=== PATIENT | female | born 1930 | race Caucasian/White ===

== ENCOUNTER → 2016-09-01 | Outpatient (REF) ==
[~2016-09-01] MED LIST: ADVIL200 MG PO; AMBIEN 5MG TABLE5 MG PO; AMOXICILLIN 50500 MG PO; AMOXICILLIN 8751 TAB PO; ASPIR-LOW81 MG PO; ASPIRIN 32325 MG/TAB PO; ASPIRIN 81M81 MG/TA2 PO; ASPIRIN E.C. 8181 MG PO; BENICAR40 MG PO; BUTALBITAL/ACET1 TAB PO; CIPRO 250MG TA250 MG PO; CIPRO 500MG TA500 MG PO; CORTEF 10MG TAB10 MG PO; CORTEF 20MG TAB20 MG PO; D3-5050000 IU PO; FISH OIL CONCEN1 SGL PO; FLONASE NASAL S16 GM NS; LEVOXYL0.025 MG PO; LIQUIFILM TEARS15 ML OU; LUTEIN20 M1; LUTEIN20 MG PO; MASON NATURAL2000 IU PO; METOPROLOL25 MG PO; MULTI VITAMINS1 TAB PO; MULTIPLE VITAMI1 CTB PO; MVI; NORCO 325 MG-51 TAB PO; NORVASC 5MG5 MG/TAB PO; NORVASC2.5 MG PO; OMEPRAZOLE DR20 MG PO; PRED FORTE 1 ML1 ML; PRED FORTE 1 ML1 ML OD; PRENATAL VITAMI1 TA5 PO; PRILOSEC 20MG20 MG PO; PROMETHAZINE25 M1 PO; PYRIDIUM200 M1 PO; REGLAN 5MG T5 MG/TAB PO; SYNTHROID0.05 MG/TA PO; SYNTHROID0.075 MG/T PO; TAMIFLU75 MG PO; TESSALON PERLE200 MG PO; TOPROL XL 25MG25 MG PO; TOPROL XL25 MG PO; VIT B-6100 MG PO; VITAMIN D1000 IU PO; VITAMIN D32000 I1 PO; VITAMIN FOR EYES; ZANTAC 150MG T150 MG PO; ZITHROMAX 250M250 MG PO; ZOCOR80 MG PO; ZOLOFT50 MG PO; blood pressure med; cholesterol med
== END ==
LOC: ZLAB.WCH 10:46
DX: Z01.89 Encounter for other specified special examinations (principal)

== ENCOUNTER 2016-09-03 07:21 | Emergency (ER) | payer MEDICARE, BC ==
[2009-03-30 04:26] VITALS: BP 188/89
[~2016-09-03] VITALS: Ht 154.9 cm; Wt 61.4 kg
[~2016-09-03 07:21] MED LIST changes: -LIQUIFILM TEARS15 ML OU; -MULTI VITAMINS1 TAB PO; -NORVASC 5MG5 MG/TAB PO; -SYNTHROID0.05 MG/TA PO; -VITAMIN D32000 I1 PO
[2016-09-03 07:28] VITALS: TEMP 97.5
[2016-09-03 08:04] LABS: BASO # 0.1 (0.0-0.2); BASO % 0.7 % (0.0-2.0); EOS # 0.2 (0.0-0.7); EOS % 1.8 % (0-4.0); GRAN # 4.6 (1.4-6.5); GRAN % 46.9 % (42.2-75.2); HEMATOCRIT 40.5 % (37.0-47.0); HEMOGLOBIN 13.4 g/dl (12.5-16.0); LYMPH # 4.3 (1.2-3.4); LYMPH % 43.3 % (20.0-51.0); MEAN CELL VOLUME 86 fl (80.0-100.0); MEAN CORPUSCULAR HEMOGLOBIN 29 pg (27.0-31.0); MEAN CORPUSCULAR HGB CONC 33 g/dl (33.0-37.0); MEAN PLATELET VOLUME 9.1 fl (7.4-10.4); MONO # 0.7 (0.1-0.6); MONO % 6.7 % (1.7-9.3); PLATELET COUNT 232 K/mm3 (130-400); RED BLOOD COUNT 4.71 M/mm3 (4.10-5.30); REDCELL DISTRIBUTION WIDTH-CV 13.6 % (11.5-14.5); WHITE BLOOD COUNT 9.8 K/mm3 (4.8-10.8)
[2016-09-03 08:09] LABS: ADJUSTED CALCIUM 9.4 mg/dL (8.4-10.2); ALANINE AMINOTRANSFERASE 36 U/L (9-52); ALBUMIN 3.7 gm/dL (3.5-5.0); ALKALINE PHOSPHATASE 42 U/L (50-136); ANION GAP 8 mmol/L (7-16); BILIRUBIN,TOTAL 0.6 mg/dL (0.0-1.0); BLOOD UREA NITROGEN 31 mg/dL (7-17); CALCIUM 9.2 mg/dL (8.4-10.2); CARBON DIOXIDE 28 mmol/L (22-30); CHLORIDE 103 mmol/L (98-107); CREATININE, serum 1.36 mg/dL (0.52-1.25); GLUCOSE 80 mg/dL (74-106); LIPASE 285 U/L (23-300); POTASSIUM 3.7 mmol/L (3.4-5.0); SODIUM 139 mmol/L (137-145); TOTAL PROTEIN 6.3 gm/dL (6.4-8.2)
[2016-09-03 08:21] LABS: B-TYPE NATRIURETIC PEPTIDE 419 pg/mL (0-450)
[2016-09-03 08:23] LABS: TROPONIN-I < 0.012 ng/mL (0.000-0.034)
[2016-09-03] MEDS ORDERED: SYNTHROID0.05 MG/TA PO (09:27)
[2016-09-03] MEDS ORDERED: CORTEF 20MG TAB20 MG PO (09:28)
[2016-09-03] MEDS ORDERED: CORTEF 10MG TAB10 MG PO (09:30)
[2016-09-03] MEDS ORDERED: VITAMIN D32000 I1 PO (09:33)
[2016-09-03] MEDS ORDERED: MULTI VITAMINS1 TAB PO (09:34)
[2016-09-03 09:36] LABS: PH 6 (5-8); SQUAMOUS EPITHELIAL 0-2 /hpf; URINE APPEARANCE Clear; URINE BACTERIA None Seen /hpf; URINE BILIRUBIN Negative (NEGATIVE); URINE BLOOD Negative (NEGATIVE); URINE COLOR Straw; URINE GLUCOSE Negative (NEGATIVE); URINE KETONE Negative (NEGATIVE); URINE RBC None Seen /hpf; URINE UROBILINOGEN Negative (NEGATIVE); URINE WBC 0-2 /hpf
[2016-09-03] MEDS ORDERED: LIQUIFILM TEARS15 ML OU (09:37)
[2016-09-03] MEDS ORDERED: NORVASC 5MG5 MG/TAB PO ×2 (12:55→13:14)
[2016-09-03] MEDS ORDERED: PRILOSEC 20MG20 MG PO (12:59)
[2016-09-03 13:11] VITALS: BP 171/89; PULSE 59
== END 2016-09-03 13:20 | disposition home or self-care (01) ==
LOC: COL.ER 07:21
PROVIDERS: Emergency Medicine
DX: R07.9 Chest pain, unspecified (principal); I10 Essential (primary) hypertension; K21.9 Gastro-esophageal reflux disease without esophagitis; E78.5 Hyperlipidemia, unspecified; F32.9 Major depressive disorder, single episode, unspecified; R00.1 Bradycardia, unspecified
CPT/HCPCS: J7040

== ENCOUNTER 2017-04-28 09:51 | Emergency (ER) | payer MEDICARE, BC ==
[2009-03-30 04:26] VITALS: BP 188/89
[~2017-04-28] VITALS: Ht 157.5 cm; Wt 59.1 kg
[~2017-04-28 09:51] MED LIST changes: +LIQUIFILM TEARS15 ML OU; +MULTI VITAMINS1 TAB PO; +NORVASC 5MG5 MG/TAB PO; +SYNTHROID0.05 MG/TA PO; +VITAMIN D32000 I1 PO
[2017-04-28 09:52] VITALS: TEMP 98.4
[2017-04-28 10:25] LABS: BASO % 0.4 % (0.0-2.0); EOS # 0.2 (0.0-0.7); EOS % 2.4 % (0-4.0); GRAN # 6.2 (1.4-6.5); GRAN % 65.4 % (42.2-75.2); HEMATOCRIT 40.2 % (37.0-47.0); HEMOGLOBIN 13.6 g/dl (12.5-16.0); LYMPH # 2.1 (1.2-3.4); LYMPH % 22.3 % (20.0-51.0); MEAN CELL VOLUME 86 fl (80.0-100.0); MEAN CORPUSCULAR HEMOGLOBIN 29 pg (27.0-31.0); MEAN CORPUSCULAR HGB CONC 34 g/dl (33.0-37.0); MEAN PLATELET VOLUME 9.3 fl (7.4-10.4); MONO # 0.8 (0.1-0.6); MONO % 8.8 % (1.7-9.3); PLATELET COUNT 196 K/mm3 (130-400); RED BLOOD COUNT 4.69 M/mm3 (4.10-5.30); REDCELL DISTRIBUTION WIDTH-CV 13.2 % (11.5-14.5)
[2017-04-28 10:30] LABS: INFLUENZA A NEGATIVE; INFLUENZA B NEGATIVE
[2017-04-28 10:37] LABS: ALBUMIN 3.6 gm/dL (3.5-5.0); BILIRUBIN,TOTAL 0.6 mg/dL (0.0-1.0); CALCIUM 8.9 mg/dL (8.4-10.2); CREATININE, serum 1.13 mg/dL (0.52-1.25); POTASSIUM 3.9 mmol/L (3.4-5.0); TOTAL PROTEIN 6.5 gm/dL (6.4-8.2)
[2017-04-28] MEDS ORDERED: TAMIFLU 75MG75 MG PO (11:49)
[2017-04-28 11:56] VITALS: BP 123/62; PULSE 52
== END 2017-04-28 12:06 | disposition home or self-care (01) ==
LOC: COL.ER 09:51
PROVIDERS: Emergency Medicine
DX: I10 Essential (primary) hypertension (principal); J11.1 Influenza due to unidentified influenza virus with other respiratory manifestations; Z90.49 Acquired absence of other specified parts of digestive tract
CPT/HCPCS: J1885; J2405; J7030

== ENCOUNTER 2017-04-30 21:16 | Emergency (ER) | payer MEDICARE, BC ==
[2009-03-30 04:26] VITALS: BP 188/89
[~2017-04-30] VITALS: Ht 157.5 cm; Wt 59.1 kg
[~2017-04-30 21:16] MED LIST changes: +TAMIFLU 75MG75 MG PO
[2017-04-30 22:06] LABS: BASO % 0.3 % (0.0-2.0); EOS # 0.1 (0.0-0.7); EOS % 0.5 % (0-4.0); GRAN # 7.6 (1.4-6.5); GRAN % 69.1 % (42.2-75.2); HEMATOCRIT 42.9 % (37.0-47.0); HEMOGLOBIN 14.6 g/dl (12.5-16.0); LYMPH # 2.7 (1.2-3.4); LYMPH % 24.6 % (20.0-51.0); MEAN CELL VOLUME 85 fl (80.0-100.0); MEAN CORPUSCULAR HEMOGLOBIN 29 pg (27.0-31.0); MEAN CORPUSCULAR HGB CONC 34 g/dl (33.0-37.0); MEAN PLATELET VOLUME 9.1 fl (7.4-10.4); MONO # 0.5 (0.1-0.6); MONO % 4.9 % (1.7-9.3); PLATELET COUNT 240 K/mm3 (130-400); RED BLOOD COUNT 5.05 M/mm3 (4.10-5.30); REDCELL DISTRIBUTION WIDTH-CV 12.9 % (11.5-14.5)
[2017-04-30 22:16] LABS: ALANINE AMINOTRANSFERASE 34 U/L (9-52); ALKALINE PHOSPHATASE 61 U/L (50-136); ANION GAP 9 mmol/L (7-16); AST,SGOT 29 U/L (15-37); BILIRUBIN,TOTAL 0.4 mg/dL (0.0-1.0); BLOOD UREA NITROGEN 19 mg/dL (7-17); CALCIUM 9.1 mg/dL (8.4-10.2); CARBON DIOXIDE 26 mmol/L (22-30); CHLORIDE 100 mmol/L (98-107); CREATININE, serum 1.16 mg/dL (0.52-1.25); GLUCOSE 111 mg/dL (74-106); POTASSIUM 3.8 mmol/L (3.4-5.0); SODIUM 136 mmol/L (137-145)
[2017-04-30 22:28] LABS: TROPONIN-I < 0.012 ng/mL (0.000-0.034)
[2017-04-30 22:44] LABS: COLLECTION METHOD CLEAN CATCH
[2017-04-30 22:50] LABS: MUCOUS Present /lpf; PH 7 (5-8); SQUAMOUS EPITHELIAL 0-2 /hpf; URINE APPEARANCE Hazy; URINE BACTERIA None Seen /hpf; URINE BILIRUBIN Negative (NEGATIVE); URINE BLOOD Negative (NEGATIVE); URINE COLOR Yellow; URINE GLUCOSE Negative (NEGATIVE); URINE KETONE Trace (NEGATIVE); URINE LEUKOCYTE ESTERASE Negative (NEGATIVE); URINE NITRATE Negative (NEGATIVE); URINE PROTEIN(semi-quant) Negative (NEGATIVE); URINE RBC 0-2 /hpf
[2017-04-30] MEDS ORDERED: AMBIEN 5MG TABLE5 MG PO (23:12)
[2017-05-01 01:42] VITALS: BP 189/81; PULSE 61; TEMP 97.2
== END 2017-05-01 01:40 | disposition home or self-care (01) ==
LOC: COL.ER 21:16
PROVIDERS: Emergency Medicine
DX: J11.1 Influenza due to unidentified influenza virus with other respiratory manifestations (principal); R53.1 Weakness; I10 Essential (primary) hypertension
CPT/HCPCS: J1885; J2405; J7030

== ENCOUNTER → 2017-05-09 | Outpatient (REF) ==
[2017-05-09 20:19] LABS: THYROID STIMULATING HORMONE 0.781 uIU/mL (0.465-4.680)
== END ==
LOC: ZLAB.WCH 18:31
PROVIDERS: Nurse Practitioner Family
DX: Z01.89 Encounter for other specified special examinations (principal)

== ENCOUNTER → 2017-08-03 | Outpatient (REF) | LOC: ZLAB.WCH 16:14 | DX: Z01.89 Encounter for other specified special examinations (principal) ==

== ENCOUNTER → 2017-08-28 | Outpatient (REF) | LOC: ZLAB.WCH 16:00 | DX: Z01.89 Encounter for other specified special examinations (principal) ==

== ENCOUNTER → 2017-11-14 | Outpatient (REF) ==
[2017-11-14 17:05] LABS: THYROID STIMULATING HORMONE 1.46 uIU/mL (0.465-4.680)
== END ==
LOC: ZLAB.WCH 16:09
PROVIDERS: Internal Medicine Endocrinology, Diabetes & Metabolism
DX: Z01.89 Encounter for other specified special examinations (principal)

== ENCOUNTER 2018-01-06 20:47 | Inpatient (IN) | payer MEDICARE, BC ==
[~2018-01-06] VITALS: Ht 157.5 cm; Wt 59.0 kg
[2018-01-06 21:20] LABS: BASO % 0.2 % (0.0-2.0); EOS % 0.1 % (0-4.0); GRAN # 11.8 (1.4-6.5); GRAN % 79.6 % (42.2-75.2); HEMATOCRIT 38.3 % (37.0-47.0); HEMOGLOBIN 12.9 g/dl (12.5-16.0); LYMPH # 2.2 (1.2-3.4); LYMPH % 14.6 % (20.0-51.0); MEAN CELL VOLUME 85 fl (80.0-100.0); MEAN CORPUSCULAR HEMOGLOBIN 29 pg (27.0-31.0); MEAN CORPUSCULAR HGB CONC 34 g/dl (33.0-37.0); MONO # 0.7 (0.1-0.6); MONO % 4.6 % (1.7-9.3); PLATELET COUNT 233 K/mm3 (130-400); RED BLOOD COUNT 4.53 M/mm3 (4.10-5.30); REDCELL DISTRIBUTION WIDTH-CV 14.6 % (11.5-14.5)
[2018-01-06 21:33] LABS: BILIRUBIN,TOTAL 0.3 mg/dL (0.0-1.0); C-REACTIVE PROTEIN 3.5 mg/dL (0.0-0.9); CALCIUM 9.4 mg/dL (8.4-10.2); CREATININE, serum 1.41 mg/dL (0.52-1.25); POTASSIUM 3.9 mmol/L (3.4-5.0)
[2018-01-06] MEDS ORDERED: MELAT3MGTAB (21:43)
[2018-01-06] MEDS ORDERED: SYNTHROID 0.0.025 MG PO (21:43)
[2018-01-06] MEDS ORDERED: CALCIUM CARBON650 M2 (21:45)
[2018-01-06] MEDS ORDERED: AK POLY BAC OP (21:46)
[2018-01-06 22:28] LABS: COLLECTION METHOD CLEAN CATCH
[2018-01-06 22:34] LABS: MUCOUS Present /lpf; PH 6 (5-8); SQUAMOUS EPITHELIAL 0-2 /hpf; URINE APPEARANCE Clear; URINE BACTERIA None Seen /hpf; URINE BILIRUBIN Negative (NEGATIVE); URINE BLOOD Negative (NEGATIVE); URINE COLOR Straw; URINE GLUCOSE Negative (NEGATIVE); URINE KETONE Negative (NEGATIVE); URINE LEUKOCYTE ESTERASE Negative (NEGATIVE); URINE NITRATE Negative (NEGATIVE); URINE PROTEIN(semi-quant) Negative (NEGATIVE); URINE RBC 0-2 /hpf; URINE UROBILINOGEN Negative (NEGATIVE)
[2018-01-07 00:42] VITALS: BP 153/63; PULSE 79; TEMP 98.3
[2018-01-07 03:45] VITALS: BP 135/67; PULSE 71; TEMP 97.4
[2018-01-07 07:05] VITALS: BP 135/71; PULSE 63; TEMP 98
[2018-01-07 07:09] LABS: CALCIUM 8.5 mg/dL (8.4-10.2); CREATININE, serum 1.13 mg/dL (0.52-1.25); POTASSIUM 3.4 mmol/L (3.4-5.0)
[2018-01-07 12:29] VITALS: BP 152/63; PULSE 70; TEMP 98.5
[2018-01-07 15:36] VITALS: BP 131/57; PULSE 65; TEMP 98
[2018-01-07 20:28] VITALS: BP 124/78; PULSE 70; TEMP 97.9
[2018-01-08] MEDS ORDERED: CIPRO 500MG TA500 MG PO (08:52)
[2018-01-08] MEDS ORDERED: FLAGYL500 MG PO (08:52)
[2018-01-08 09:22] VITALS: BP 137/73; PULSE 52; TEMP 98.1
[2018-01-08 09:29] LABS: BASO # 0.1 (0.0-0.2); BASO % 0.7 % (0.0-2.0); EOS # 0.1 (0.0-0.7); EOS % 1.4 % (0-4.0); GRAN # 5.8 (1.4-6.5); GRAN % 59.3 % (42.2-75.2); HEMATOCRIT 37.7 % (37.0-47.0); HEMOGLOBIN 12.2 g/dl (12.5-16.0); LYMPH # 2.8 (1.2-3.4); MEAN CELL VOLUME 87 fl (80.0-100.0); MEAN CORPUSCULAR HEMOGLOBIN 28 pg (27.0-31.0); MEAN CORPUSCULAR HGB CONC 32 g/dl (33.0-37.0); MEAN PLATELET VOLUME 9.3 fl (7.4-10.4); MONO # 0.8 (0.1-0.6); MONO % 8.6 % (1.7-9.3); PLATELET COUNT 215 K/mm3 (130-400); RED BLOOD COUNT 4.33 M/mm3 (4.10-5.30); REDCELL DISTRIBUTION WIDTH-CV 14.5 % (11.5-14.5)
[2018-01-08 09:32] LABS: CREATININE, serum 1.2 mg/dL (0.52-1.25); POTASSIUM 3.8 mmol/L (3.4-5.0)
[2018-01-08 12:15] VITALS: BP 126/74; PULSE 107; TEMP 98.7
[2018-01-08 16:20] VITALS: BP 125/58; PULSE 72; TEMP 98.5
[2018-01-08 19:19] VITALS: BP 120/51; PULSE 73; TEMP 98.7
[2018-01-09 07:41] VITALS: BP 140/56; PULSE 58; TEMP 97.9
== END 2018-01-09 10:41 | disposition home or self-care (01) | DRG 392 ==
LOC: COL.ER 20:47 → MEDICAL 22:51
PROVIDERS: Emergency Medicine; Nurse Practitioner; Nurse Practitioner Family
DX: K57.32 Diverticulitis of large intestine without perforation or abscess without bleeding (principal); N17.9 Acute kidney failure, unspecified; E23.0 Hypopituitarism; K52.9 Noninfective gastroenteritis and colitis, unspecified; I10 Essential (primary) hypertension
CPT/HCPCS: 99223-AI; 99232-AI; G0378; J0696; J7030

== ENCOUNTER 2018-01-13 14:57 | Emergency (ER) | payer MEDICARE, BC ==
[2009-03-30 04:26] VITALS: BP 188/89
[~2018-01-13] VITALS: Ht 157.5 cm; Wt 57.7 kg
[~2018-01-13 14:57] MED LIST changes: +AK POLY BAC OP; +CALCIUM CARBON650 M2; +FLAGYL500 MG PO; +MELAT3MGTAB; +SYNTHROID 0.0.025 MG PO
[2018-01-13 15:01] VITALS: TEMP 99.6
[2018-01-13 15:51] LABS: BASO # 0.1 (0.0-0.2); BASO % 0.6 % (0.0-2.0); EOS # 0.1 (0.0-0.7); EOS % 1.4 % (0-4.0); GRAN # 7.9 (1.4-6.5); GRAN % 76.5 % (42.2-75.2); HEMATOCRIT 37.8 % (37.0-47.0); HEMOGLOBIN 12.6 g/dl (12.5-16.0); LYMPH # 1.5 (1.2-3.4); MEAN CELL VOLUME 85 fl (80.0-100.0); MEAN CORPUSCULAR HEMOGLOBIN 28 pg (27.0-31.0); MEAN CORPUSCULAR HGB CONC 33 g/dl (33.0-37.0); MEAN PLATELET VOLUME 8.8 fl (7.4-10.4); MONO # 0.6 (0.1-0.6); MONO % 5.7 % (1.7-9.3); PLATELET COUNT 227 K/mm3 (130-400); RED BLOOD COUNT 4.46 M/mm3 (4.10-5.30); REDCELL DISTRIBUTION WIDTH-CV 14.6 % (11.5-14.5)
[2018-01-13 16:01] LABS: CALCIUM 8.4 mg/dL (8.4-10.2); CREATININE, serum 1.23 mg/dL (0.52-1.25); POTASSIUM 3.1 mmol/L (3.4-5.0)
[2018-01-13] MEDS ORDERED: K-TAB10 PO (16:03)
[2018-01-13 16:28] VITALS: BP 141/78; PULSE 71
== END 2018-01-13 16:28 | disposition home or self-care (01) ==
LOC: COL.ER 14:57
PROVIDERS: Emergency Medicine
DX: E87.6 Hypokalemia (principal); K57.92 Diverticulitis of intestine, part unspecified, without perforation or abscess without bleeding; R53.81 Other malaise

== ENCOUNTER → 2018-01-16 | Outpatient (CLI) | payer MEDICARE, BC ==
[~2018-01-16] MED LIST changes: +K-TAB10 PO
== END ==
LOC: COL.LAB 11:19
DX: E87.6 Hypokalemia (principal)

== ENCOUNTER 2018-03-14 11:28 | Emergency (ER) | payer MEDICARE, BC ==
[2009-03-30 04:26] VITALS: BP 188/89
[~2018-03-14] VITALS: Ht 157.5 cm; Wt 56.8 kg
[2018-03-14 11:32] VITALS: TEMP 96.9
[2018-03-14] MEDS ORDERED: MILK OF MA400 MG/52 (11:51)
[2018-03-14] MEDS ORDERED: SYNTHROID 0.0.025 MG PO (12:00)
[2018-03-14] MEDS ORDERED: TYLENOL 500MG500 MG PO (12:01)
[2018-03-14 13:18] LABS: BASO # 0.1 (0.0-0.2); BASO % 0.5 % (0.0-2.0); EOS # 0.3 (0.0-0.7); EOS % 2.2 % (0-4.0); GRAN # 8.2 (1.4-6.5); GRAN % 71.4 % (42.2-75.2); HEMATOCRIT 42.8 % (37.0-47.0); HEMOGLOBIN 14.2 g/dl (12.5-16.0); LYMPH # 2.1 (1.2-3.4); LYMPH % 18.5 % (20.0-51.0); MEAN CELL VOLUME 88 fl (80.0-100.0); MEAN CORPUSCULAR HEMOGLOBIN 29 pg (27.0-31.0); MEAN CORPUSCULAR HGB CONC 33 g/dl (33.0-37.0); MEAN PLATELET VOLUME 8.8 fl (7.4-10.4); MONO # 0.7 (0.1-0.6); MONO % 6.4 % (1.7-9.3); PLATELET COUNT 216 K/mm3 (130-400); RED BLOOD COUNT 4.88 M/mm3 (4.10-5.30); REDCELL DISTRIBUTION WIDTH-CV 14.3 % (11.5-14.5)
[2018-03-14 13:37] LABS: ALBUMIN 4.1 gm/dL (3.5-5.0); BILIRUBIN,TOTAL 0.5 mg/dL (0.0-1.0); C-REACTIVE PROTEIN 0.6 mg/dL (0.0-0.9); CALCIUM 9.5 mg/dL (8.4-10.2); CREATININE, serum 1.36 mg/dL (0.52-1.25); POTASSIUM 3.7 mmol/L (3.4-5.0)
[2018-03-14 15:41] LABS: COLLECTION METHOD CLEAN CATCH
[2018-03-14 16:01] VITALS: BP 131/74; PULSE 84
[2018-03-14 16:05] LABS: AMORPHOUS CRYSTAL Present /uL; MUCOUS Present /lpf; PH 7 (5-8); SQUAMOUS EPITHELIAL 0-2 /hpf; URINE APPEARANCE Turbid; URINE BACTERIA None Seen /hpf; URINE BILIRUBIN Negative (NEGATIVE); URINE BLOOD Negative (NEGATIVE); URINE COLOR Yellow; URINE GLUCOSE Negative (NEGATIVE); URINE KETONE Negative (NEGATIVE); URINE LEUKOCYTE ESTERASE Negative (NEGATIVE); URINE NITRATE Negative (NEGATIVE); URINE PROTEIN(semi-quant) Negative (NEGATIVE); URINE UROBILINOGEN Negative (NEGATIVE)
== END 2018-03-14 16:02 | disposition home or self-care (01) ==
LOC: COL.ER 11:28
PROVIDERS: Emergency Medicine
DX: R10.84 Generalized abdominal pain (principal)

== ENCOUNTER 2018-04-02 11:23 | Inpatient (IN) | payer MEDICARE, BC ==
[~2018-04-02] VITALS: Ht 157.5 cm; Wt 59.9 kg
[2018-04-02] VITALS (15 sets, daily range): BP systolic 111–169; BP diastolic 62–95; PULSE 75–90; TEMP 97.2–98.3
[~2018-04-02 11:23] MED LIST changes: -MELAT3MGTAB; +MELAT3MGTAB PO; +MILK OF MA400 MG/52; +TYLENOL 500MG500 MG PO
[2018-04-02 11:41] LABS: BASO # 0.1 (0.0-0.2); BASO % 0.6 % (0.0-2.0); EOS # 0.3 (0.0-0.7); EOS % 1.6 % (0-4.0); GRAN # 10.6 (1.4-6.5); GRAN % 64.2 % (42.2-75.2); LYMPH # 4.5 (1.2-3.4); MEAN CELL VOLUME 89 fl (80.0-100.0); MEAN CORPUSCULAR HEMOGLOBIN 29 pg (27.0-31.0); MEAN CORPUSCULAR HGB CONC 33 g/dl (33.0-37.0); MEAN PLATELET VOLUME 9.2 fl (7.4-10.4); MONO % 5.8 % (1.7-9.3); PLATELET COUNT 259 K/mm3 (130-400); RED BLOOD COUNT 4.14 M/mm3 (4.10-5.30); REDCELL DISTRIBUTION WIDTH-CV 13.9 % (11.5-14.5)
[2018-04-02 11:43] LABS: PROTHROMBIN TIME 11.1 SECONDS (9.7-12.8)
[2018-04-02 11:44] LABS: HEMATOCRIT 36.7 % (37.0-47.0)
[2018-04-02 11:53] LABS: ALBUMIN 3.2 gm/dL (3.5-5.0); BILIRUBIN,TOTAL 0.4 mg/dL (0.0-1.0); CALCIUM 8.8 mg/dL (8.4-10.2); CREATININE, serum 1.49 mg/dL (0.52-1.25); POTASSIUM 3.9 mmol/L (3.4-5.0); TOTAL PROTEIN 5.8 gm/dL (6.4-8.2)
[2018-04-02 12:09] LABS: TROPONIN-I 0.042 ng/mL (0.000-0.034)
[2018-04-02] MEDS ORDERED: MULTIVITAMIN FO1 CAP PO (15:59)
[2018-04-03] VITALS (18 sets, daily range): BP systolic 96–168; BP diastolic 41–84; PULSE 68–97; TEMP 97.4–98.4
[2018-04-03 03:46] LABS: COLLECTION METHOD CATHETER
[2018-04-03 03:59] LABS: MUCOUS Present /lpf; PH 5 (5-8); SQUAMOUS EPITHELIAL 0-2 /hpf; URINE APPEARANCE Clear; URINE BACTERIA Rare /hpf; URINE BILIRUBIN Negative (NEGATIVE); URINE BLOOD 2+ (NEGATIVE); URINE COLOR Yellow; URINE GLUCOSE Negative (NEGATIVE); URINE KETONE Negative (NEGATIVE); URINE LEUKOCYTE ESTERASE Negative (NEGATIVE); URINE NITRATE Negative (NEGATIVE); URINE PROTEIN(semi-quant) 1+ (NEGATIVE); URINE UROBILINOGEN Negative (NEGATIVE)
[2018-04-03 04:07] LABS: GRAN # 8.4 (1.4-6.5); GRAN % 83.2 % (42.2-75.2); HEMATOCRIT 32.4 % (37.0-47.0); HEMOGLOBIN 10.6 g/dl (12.5-16.0); LYMPH # 1.2 (1.2-3.4); LYMPH % 12.2 % (20.0-51.0); MEAN CELL VOLUME 88 fl (80.0-100.0); MEAN CORPUSCULAR HEMOGLOBIN 29 pg (27.0-31.0); MEAN CORPUSCULAR HGB CONC 33 g/dl (33.0-37.0); MEAN PLATELET VOLUME 9.3 fl (7.4-10.4); MONO # 0.4 (0.1-0.6); MONO % 3.8 % (1.7-9.3); PLATELET COUNT 204 K/mm3 (130-400); RED BLOOD COUNT 3.68 M/mm3 (4.10-5.30)
[2018-04-03 04:25] LABS: CALCIUM 8.4 mg/dL (8.4-10.2); CHOLESTEROL RISK RATIO 2.9; CREATININE, serum 1.26 mg/dL (0.52-1.25); POTASSIUM 4.4 mmol/L (3.4-5.0)
[2018-04-03 04:59] LABS: TSH w REFLEX 0.408 uIU/mL (0.465-4.680)
[2018-04-04] VITALS: BP 125/55; PULSE 60; TEMP 98.3
[2018-04-04 04:00] VITALS: BP 135/64; PULSE 64; TEMP 98.1
[2018-04-04 05:54] LABS: CALCIUM 8.7 mg/dL (8.4-10.2); CREATININE, serum 1.21 mg/dL (0.52-1.25); POTASSIUM 4.1 mmol/L (3.4-5.0)
[2018-04-04 07:30] LABS: BASO % 0.3 % (0.0-2.0); EOS # 0.1 (0.0-0.7); EOS % 0.6 % (0-4.0); GRAN # 10.7 (1.4-6.5); GRAN % 69.5 % (42.2-75.2); HEMATOCRIT 32.5 % (37.0-47.0); HEMOGLOBIN 10.9 g/dl (12.5-16.0); LYMPH # 3.3 (1.2-3.4); LYMPH % 21.4 % (20.0-51.0); MEAN CELL VOLUME 86 fl (80.0-100.0); MEAN CORPUSCULAR HEMOGLOBIN 29 pg (27.0-31.0); MEAN CORPUSCULAR HGB CONC 34 g/dl (33.0-37.0); MEAN PLATELET VOLUME 9.5 fl (7.4-10.4); MONO # 1.1 (0.1-0.6); MONO % 7.4 % (1.7-9.3); PLATELET COUNT 212 K/mm3 (130-400); RED BLOOD COUNT 3.76 M/mm3 (4.10-5.30)
[2018-04-04 08:00] VITALS: BP 134/61; PULSE 65; TEMP 98
[2018-04-04 12:00] VITALS: BP 116/5; BP 116/56; PULSE 74; PULSE 96; TEMP 97.5
[2018-04-04 16:00] VITALS: BP 139/60; PULSE 73; PULSE 74; TEMP 97.3; TEMP 97.5
[2018-04-04 20:00] VITALS: BP 151/68; PULSE 75; TEMP 98.1
[2018-04-05 00:15] VITALS: BP 165/64; PULSE 67; TEMP 98.3
[2018-04-05 04:00] VITALS: BP 151/65; PULSE 66; TEMP 98.3
[2018-04-05 05:36] LABS: BASO # 0.1 (0.0-0.2); BASO % 0.4 % (0.0-2.0); EOS # 0.2 (0.0-0.7); EOS % 1.6 % (0-4.0); GRAN # 7.9 (1.4-6.5); GRAN % 64.6 % (42.2-75.2); HEMOGLOBIN 10.5 g/dl (12.5-16.0); LYMPH # 3.1 (1.2-3.4); LYMPH % 25.2 % (20.0-51.0); MEAN CELL VOLUME 88 fl (80.0-100.0); MEAN CORPUSCULAR HEMOGLOBIN 29 pg (27.0-31.0); MEAN CORPUSCULAR HGB CONC 33 g/dl (33.0-37.0); MEAN PLATELET VOLUME 9.5 fl (7.4-10.4); MONO # 0.9 (0.1-0.6); MONO % 7.5 % (1.7-9.3); PLATELET COUNT 176 K/mm3 (130-400); RED BLOOD COUNT 3.62 M/mm3 (4.10-5.30); REDCELL DISTRIBUTION WIDTH-CV 13.8 % (11.5-14.5)
[2018-04-05 05:37] LABS: HEMATOCRIT 31.7 % (37.0-47.0)
[2018-04-05 05:57] LABS: CALCIUM 8.7 mg/dL (8.4-10.2); CREATININE, serum 1.11 mg/dL (0.52-1.25)
[2018-04-05] MEDS ORDERED: PLAVIX 75MG TAB75 MG PO (07:08)
[2018-04-05] MEDS ORDERED: LIPITOR 40MG TA40 MG PO (07:08)
[2018-04-05] MEDS ORDERED: NITROSTAT0.4 MG/TAB SL (07:09)
[2018-04-05] MEDS ORDERED: COREG 3.123.125 MG/T PO (07:09)
[2018-04-05] MEDS ORDERED: ASPIRIN E.C. 8181 MG PO (07:09)
[2018-04-05] MEDS ORDERED: SENNA-LAX8.6 MG PO (07:12)
[2018-04-05 07:26] VITALS: BP 151/54; PULSE 65; TEMP 98.1
[2018-04-05] MEDS ORDERED: COREG 6.256.25 MG/TA PO ×2 (08:19)
== END 2018-04-05 12:00 | disposition home or self-care (01) | DRG 246 ==
LOC: COL.ER 11:23 → ICU 12:01 → IMCU 12:01 → ICU 14:30 → MEDICAL 04-04 22:22
PROVIDERS: Emergency Medicine; Internal Medicine Cardiovascular Disease; Internal Medicine Pulmonary Disease; Physician Assistant
PROC: 027034Z Dilation of Coronary Artery, One Artery with Drug-eluting Intraluminal Device, Percutaneous Approach (ICD-10-PCS; principal; 2018-04-02)
PROC: B2111ZZ Fluoroscopy of Multiple Coronary Arteries using Low Osmolar Contrast (ICD-10-PCS; 2018-04-02)
PROC: 3E03317 Introduction of Other Thrombolytic into Peripheral Vein, Percutaneous Approach (ICD-10-PCS; 2018-04-02)
DX: I21.19 ST elevation (STEMI) myocardial infarction involving other coronary artery of inferior wall (principal); R57.0 Cardiogenic shock; E23.0 Hypopituitarism; N17.9 Acute kidney failure, unspecified; I12.9 Hypertensive chronic kidney disease with stage 1 through stage 4 chronic kidney disease, or unspecified chronic kidney disease; N18.9 Chronic kidney disease, unspecified; I25.10 Atherosclerotic heart disease of native coronary artery without angina pectoris; E78.5 Hyperlipidemia, unspecified; D64.9 Anemia, unspecified; H11.32 Conjunctival hemorrhage, left eye; I08.3 Combined rheumatic disorders of mitral, aortic and tricuspid valves
CPT/HCPCS: 99223; 99231-AI; 99232-AI; C1725; C1769; C1874; C1887; C1894; C9600; J1200; J1265; J1644; J1720; J2405; J2930; J3101; J7030; Q9967

== ENCOUNTER 2018-04-13 10:57 | Emergency (ER) | payer MEDICARE, BC ==
[2009-03-30 04:26] VITALS: BP 188/89
[~2018-04-13] VITALS: Ht 157.5 cm; Wt 56.8 kg
[~2018-04-13 10:57] MED LIST changes: +COREG 3.123.125 MG/T PO; +COREG 6.256.25 MG/TA PO; +LIPITOR 40MG TA40 MG PO; +MULTIVITAMIN FO1 CAP PO; +NITROSTAT0.4 MG/TAB SL; +PLAVIX 75MG TAB75 MG PO; +SENNA-LAX8.6 MG PO
[2018-04-13 10:59] VITALS: TEMP 97
[2018-04-13 11:55] LABS: HEMOGLOBIN 11.3 g/dl (12.5-16.0); MEAN CELL VOLUME 89 fl (80.0-100.0); MEAN CORPUSCULAR HEMOGLOBIN 29 pg (27.0-31.0); MEAN CORPUSCULAR HGB CONC 33 g/dl (33.0-37.0); MEAN PLATELET VOLUME 9.1 fl (7.4-10.4); PLATELET COUNT 264 K/mm3 (130-400); RED BLOOD COUNT 3.89 M/mm3 (4.10-5.30); REDCELL DISTRIBUTION WIDTH-CV 14.5 % (11.5-14.5)
[2018-04-13 11:56] LABS: HEMATOCRIT 34.7 % (37.0-47.0)
[2018-04-13 12:01] LABS: INR 1.1 (0.8-3.0)
[2018-04-13 12:07] LABS: ALBUMIN 3.5 gm/dL (3.5-5.0); BILIRUBIN,TOTAL 0.6 mg/dL (0.0-1.0); CALCIUM 8.9 mg/dL (8.4-10.2); CREATININE, serum 1.26 mg/dL (0.52-1.25); POTASSIUM 3.3 mmol/L (3.4-5.0); TOTAL PROTEIN 6.1 gm/dL (6.4-8.2)
[2018-04-13 12:09] LABS: BAND 8 % (0-10); EOSINOPHIL 3 % (0-4); LYMPHOCYTE 13 % (20.0-51.0); NEUTROPHILS 69 % (42.0-75.2); PLATELET ESTIMATE NORMAL (NORMAL)
[2018-04-13] MEDS ORDERED: COREG 3.123.125 MG/T PO (12:17)
[2018-04-13 12:21] LABS: TROPONIN-I 0.111 ng/mL (0.000-0.034)
[2018-04-13 14:37] VITALS: BP 171/90; PULSE 59
== END 2018-04-13 14:19 | disposition short-term general hospital (02) ==
LOC: COL.ER 10:57
PROVIDERS: Family Medicine
DX: I25.10 Atherosclerotic heart disease of native coronary artery without angina pectoris (principal); Z95.5 Presence of coronary angioplasty implant and graft; Z79.02 Long term (current) use of antithrombotics/antiplatelets; Z79.82 Long term (current) use of aspirin
CPT/HCPCS: J1650

== ENCOUNTER → 2018-08-02 | Outpatient (CLI) | payer MEDICARE, BC | LOC: COL.RAD 14:48 | DX: M25.511 Pain in right shoulder (principal) ==

== ENCOUNTER 2018-09-10 10:44 | Inpatient (IN) | payer MEDICARE, BC ==
[~2018-09-10] VITALS: Ht 157.5 cm; Wt 61.9 kg
[2018-09-10 11:23] LABS: BASO # 0.1 (0.0-0.2); BASO % 0.5 % (0.0-2.0); EOS # 0.3 (0.0-0.7); EOS % 2.7 % (0-4.0); GRAN # 7.3 (1.4-6.5); GRAN % 66.5 % (42.2-75.2); HEMATOCRIT 34.4 % (37.0-47.0); HEMOGLOBIN 10.6 g/dl (12.5-16.0); LYMPH # 2.3 (1.2-3.4); LYMPH % 20.5 % (20.0-51.0); MEAN CELL VOLUME 85 fl (80.0-100.0); MEAN CORPUSCULAR HEMOGLOBIN 26 pg (27.0-31.0); MEAN CORPUSCULAR HGB CONC 31 g/dl (33.0-37.0); MEAN PLATELET VOLUME 8.9 fl (7.4-10.4); MONO # 0.9 (0.1-0.6); MONO % 8.5 % (1.7-9.3); PLATELET COUNT 260 K/mm3 (130-400); RED BLOOD COUNT 4.06 M/mm3 (4.10-5.30); REDCELL DISTRIBUTION WIDTH-CV 18.7 % (11.5-14.5)
[2018-09-10 11:30] LABS: PROTHROMBIN TIME 10.8 SECONDS (9.7-12.8)
[2018-09-10 11:33] LABS: PARTIAL THROMBOPLASTIN TIME 27.6 SECONDS (26.0-37.0)
[2018-09-10 11:38] LABS: ALBUMIN 3.3 gm/dL (3.5-5.0); BILIRUBIN,TOTAL 0.4 mg/dL (0.0-1.0); CALCIUM 8.8 mg/dL (8.4-10.2); CREATININE, serum 1.28 (0.52-1.25); POTASSIUM 3.6 mmol/L (3.4-5.0)
[2018-09-10 11:49] LABS: TROPONIN-I 0.017 ng/mL (0.000-0.035)
[2018-09-10 16:19] VITALS: BP 197/70; PULSE 66; TEMP 98
[2018-09-10] MEDS ORDERED: CORTEF 10MG TAB10 MG PO (16:28)
--- NOTE | 2018-09-10 19:13 | NUR ---
Patient arrived from ER to room. Assisted to bed, family ordered food for patient. Denies having any pain. Call light is within reach.
--- NOTE | 2018-09-10 19:28 | NUR ---
Family has returned to patients bedside. Daughter in law states she believes patient is feeling much better. Patient is on left side resting in bed. Denies pain. Provided with fresh water. Call light and personal belongings are within reach. Family has no further needs for patient.
--- NOTE | 2018-09-10 19:28 | NUR ---
Patient resting in bed with family at bedside. Assessment completed, denies chest pain. HOme eye drops given to this nurse, place in bin in med room to be checked by pharmacy.
[2018-09-10 20:28] VITALS: BP 121/47; PULSE 83; TEMP 98.2
[2018-09-10 23:49] VITALS: BP 168/62; PULSE 67; TEMP 98.8
[2018-09-11] VITALS (103 sets, daily range): BP systolic 118–182; BP diastolic 45–75; PULSE 63–84; TEMP 97.9–99.4; O2SAT 89–100
--- NOTE | 2018-09-11 04:51 | NUR ---
Pt slept most of the night, heparin gtt infusing, rate of 5.5 mls/hr, IVF at 65 mls/hr. Denies chest pain. No further needs atthis time.
[2018-09-11 07:09] LABS: BASO # 0.1 (0.0-0.2); BASO % 0.7 % (0.0-2.0); EOS # 0.3 (0.0-0.7); EOS % 2.8 % (0-4.0); GRAN # 5.4 (1.4-6.5); GRAN % 59.1 % (42.2-75.2); LYMPH # 2.5 (1.2-3.4); LYMPH % 27.1 % (20.0-51.0); MEAN CELL VOLUME 84 fl (80.0-100.0); MEAN CORPUSCULAR HEMOGLOBIN 26 pg (27.0-31.0); MEAN CORPUSCULAR HGB CONC 31 g/dl (33.0-37.0); MONO # 0.9 (0.1-0.6); MONO % 9.4 % (1.7-9.3); PLATELET COUNT 254 K/mm3 (130-400); RED BLOOD COUNT 3.87 M/mm3 (4.10-5.30); REDCELL DISTRIBUTION WIDTH-CV 18.9 % (11.5-14.5)
--- NOTE | 2018-09-11 07:10 | NUR ---
report given to rob rn
[2018-09-11 07:12] LABS: HEMATOCRIT 32.6 % (37.0-47.0)
[2018-09-11 07:18] LABS: CALCIUM 8.4 mg/dL (8.4-10.2); CREATININE, serum 1.12 (0.52-1.25)
[2018-09-11 07:31] LABS: TROPONIN-I 0.56 ng/mL (0.000-0.035)
--- NOTE | 2018-09-11 07:53 | NUR ---
HEPARIN XA RESULTED A 0.44. HEPARIN DRIP DECREASED FROM 5.5ML/HR TO 4.5ML/HR PER HEPARIN DRIP PROTOCOL ORDER. WILL RECHECK HEPARIN XA 09/11/18 @ 1300.
--- NOTE | 2018-09-11 08:02 | NUR ---
received report from GAIL Herndon.
--- NOTE | 2018-09-11 08:15 | NUR ---
AM ASSESSMENT COMPLETED AT THIS TIME. DENIES C/O OF CHEST PAIN OR SOA. LAYING IN BED VISITING WITH . BP 182/64 HR 66 AND REGULAR PRN HYDRALAZINE 10MG IVP GIVEN ALONG WITH OTHER SCHEDULED AM MEDS.
--- NOTE | 2018-09-11 09:17 | NUR ---
SW attended clinical rounds. Depending on whether the patient and her want interventions, possible transfer to [facility]. CLARITA then followed up with the patient and patient's , Cedrick. The patient lives in [place] with her . She reports independence with ADLs and does not use any DME. The patient's PCP is Dr. Tray Melendez and she receives her medications at the [facility]. She reports no difficulties obtaining her meds. The patient's does not have advanced directives in EMR, but the patient's reports that she does have them completed. The patient's states that he believes that they are at home and that he is the patient's DPOA-HC. SW encouraged that he bring a copy to the hospital. SW to continue to follow.
--- NOTE | 2018-09-11 09:21 | NUR ---
AND TEAM ROUNDED ON PATIENT AND CHANGED SOME MEDS.BP RECHECKED AND STABLE AT THIS TIME.PT AND SPOUSE TO DECIDE ON ADVANCE DIRECTIVES.NO OTHER NEEDS VOICED AT THIS TIME. WILL CONTINUE TO MONITOR.CALL LIGHT IIN REACH
--- NOTE | 2018-09-11 11:20 | NUR ---
First visit from the enterprise systems architect. No needs right now.
--- NOTE | 2018-09-11 14:16 | NUR ---
HEPARIN XA RESULTED @ 0.18 PER PROTOCOL HEPARIN DRIP INCREASED +1.5. iNFUSION RUNNING @ 6MLS/HR. HEPARIN XA RECHECK ORDERED PER PROTOCOL FOR 199909/11/18. CARDIAC ECHO BEINING COMPLETED BY CHRISTIEIAN AT THIS TIME.
--- NOTE | 2018-09-11 15:17 | NUR ---
PATIENT LAYING IN BED VISITING WITH FAMILY. DENIES C/O CHEST PAIN AT REST OR ON EXCERTION WHEN UP TO THE BATHROOM. TELEMETRY INDICATING NSR. NO COMPLAINTS VOICED AT THIS TIME.
[2018-09-11] MEDS ORDERED: PREDFORTE10ML OU (17:03)
--- NOTE | 2018-09-11 18:30 | NUR ---
THIS RN REVIEWED GAIL JOHNSTON DOCUMENTEATION AND AGREES WITH ABOVE FINDINGS.
--- NOTE | 2018-09-11 18:52 | NUR ---
REPORT GIVEN TO GAIL JOHNSTON.
--- NOTE | 2018-09-11 19:29 | NUR ---
Patient resting in bed with family at bedside, assessment completed, VSS, afebrile. Denies chest pain at this time- educated pt to notify staff if experiencing any chest pain. On heparin gtt, redraw labs at 1999. No needs at this time.
--- NOTE | 2018-09-11 19:38 | NUR ---
Call from telemetry, pt had 36 beat run of SVT. UPon obtaining vitals BP 124/71, HR at 82. Patient states she feels fine, her family just arrived to room.
--- NOTE | 2018-09-11 19:40 | NUR ---
BETTINA Walls and cardiology Dr. Tabares notified of 36 run of SVT. Will continue to observe pt. Pt resting in bed with family at bedside at this time.
--- NOTE | 2018-09-11 21:55 | NUR ---
Patient had another run of 26 beats SVT. BP 143/50, HR 82, Sp02 96% on room air. Pt asymptomatic- no chest pain/sob, states she does not feel any different. Cardiology and hospitalist notified and pt is to be transferred to ICU8. Discussed with patient ICU has more staff/fewer patients in case this were to happen again. Pt's family called and notified of what is going on and family will be in to see the patient tomorrow morning.
--- NOTE | 2018-09-11 22:07 | NUR ---
Report called to GAIL Pedroza in ICU. Will transfer pt down now.
--- NOTE | 2018-09-11 22:25 | NUR ---
Patient transferred down to ICU 8 via wheelchair. All belongings brought with patient, family aware of transfer.
--- NOTE | 2018-09-11 22:30 | NUR ---
PATIENT ARRIVED ON UNIT. PATIENTS VITALS WERE STABLE ON ARRIVAL AND DID NOT COMPLAIN OF ANY PAIN OR DISCOMFOR. TAKING OVER PATIENTS PLAN OF CARE AT THIS TIEM. WILL CONTINUE TO MONITOR PATIENT THROUGHOUT SHIFT.
[2018-09-11 23:11] LABS: BASO # 0.1 (0.0-0.2); BASO % 0.6 % (0.0-2.0); EOS # 0.2 (0.0-0.7); EOS % 1.8 % (0-4.0); GRAN # 5.4 (1.4-6.5); GRAN % 64.7 % (42.2-75.2); HEMATOCRIT 31.3 % (37.0-47.0); HEMOGLOBIN 9.8 g/dl (12.5-16.0); LYMPH % 23.8 % (20.0-51.0); MEAN CELL VOLUME 84 fl (80.0-100.0); MEAN CORPUSCULAR HEMOGLOBIN 26 pg (27.0-31.0); MEAN CORPUSCULAR HGB CONC 31 g/dl (33.0-37.0); MEAN PLATELET VOLUME 8.8 fl (7.4-10.4); MONO # 0.7 (0.1-0.6); MONO % 8.3 % (1.7-9.3); PLATELET COUNT 241 K/mm3 (130-400); RED BLOOD COUNT 3.75 M/mm3 (4.10-5.30)
[2018-09-11 23:20] LABS: CALCIUM 8.2 mg/dL (8.4-10.2); CREATININE, serum 1.1 (0.52-1.25); MAGNESIUM 1.8 mg/dL (1.6-2.3); POTASSIUM 3.8 mmol/L (3.4-5.0)
[2018-09-12] VITALS (946 sets, daily range): BP systolic 128–167; BP diastolic 50–77; PULSE 58–82; TEMP 97.5–98.6; O2SAT 82–100
[2018-09-12 02:41] LABS: MEAN CELL VOLUME 85 fl (80.0-100.0); MEAN CORPUSCULAR HGB CONC 31 g/dl (33.0-37.0); MEAN PLATELET VOLUME 8.6 fl (7.4-10.4); PLATELET COUNT 240 K/mm3 (130-400); RED BLOOD COUNT 3.63 M/mm3 (4.10-5.30)
[2018-09-12 02:58] LABS: HEMATOCRIT 30.8 % (37.0-47.0); HEMOGLOBIN 9.5 g/dl (12.5-16.0); MEAN CORPUSCULAR HEMOGLOBIN 26 pg (27.0-31.0)
--- NOTE | 2018-09-12 03:08 | NUR ---
DECREASED HEPARIN DRIP PER PHYSICIAN PROTOCOL BASED ON HEPXA LEVEL.
--- NOTE | 2018-09-12 08:35 | NUR ---
gave report to ashish ram.
[2018-09-12] MEDS ORDERED: MAXITROL OPHTH3.5 GM OP (10:16)
--- NOTE | 2018-09-12 12:22 | NUR ---
prednisolone opthalmic drops recieved and placed in pt bin in med room along w/ neomycin ointment
--- NOTE | 2018-09-12 13:55 | NUR ---
SW and hospitalist met with patient to disucss recommendations for patient to transfer to a higher level of care hospital. As of right now, [facility] has not accepted patient but hospitalist and SW inquired if patient would be willing to transfer. Patient reported that she would not want to transfer today because she is "tired." Patient will likely move to the floor and we will wait for [facility] acceptance or denial.
--- NOTE | 2018-09-12 16:50 | NUR ---
Pt sitting at side of bed, denies pain or discomfort and stating she would really like to go home. and daughter at the beside and have been informed about the impending tx to 315. Pt VSS, no fevers, Lunds clear, A/O x3. Pt remains on IVF and Heparin gtt. Pt w/ standby assist and able to get up to the restroom x3 with ease. Will continue to monitor and update providers as needed.
--- NOTE | 2018-09-12 16:55 | NUR ---
Report given to GAIL Lott VSS, pt in wheelchair tx with family. Remains on Heparin and and IVF. Pt meds sent up with daughter.
--- NOTE | 2018-09-12 17:04 | NUR ---
Pt arrived to room 315 at this time. Pt is A/O x3. Family is at bedside. Pt denies any pain or palpitations at this time. No SOB. Lungs CTA. HR regular, murmur ascultated. No edema present. IVF infusing at 75ml/hr and heparin infusing at 3.5ml/hr into LAC, wrapped with madelyn wrap. POC discussed with patient and her family who verbalize understanding. They deny needs at this time. Call light within reach.
--- NOTE | 2018-09-12 18:46 | NUR ---
HepXa level low, bolus given and rate increased to 6ml/hr. Pt sitting up in bed eating dinner at this time. No needs, call light within reach.
--- NOTE | 2018-09-12 19:30 | NUR ---
Initial shift assessment done- denies pain, chest pain. SOB. States ready to get some sleep tonight. Tele on. Heparin drip at 6cc/hr, will recheck hep XA at 2330 tonight. IV fluids of NS at 75cc/hr.
[2018-09-13 00:08] VITALS: BP 154/63; PULSE 75; TEMP 97.2
--- NOTE | 2018-09-13 00:30 | NUR ---
Pt states feels like she is getting a cold- states has runny nose/sneezing, wants the doctor called now for medicine so that it doesnt "get worse"-- Kavita GURROLA called at this time- ordered Tylenol, Vitamin C and Mucinex
--- NOTE | 2018-09-13 00:35 | NUR ---
Hepxa back at 0.45--heparin drip decreased 1 ml/hr to 5ml/hr,, protocol followed - will recheck hepxa at 0630.
[2018-09-13 05:41] VITALS: BP 151/62; PULSE 67; TEMP 98.9
--- NOTE | 2018-09-13 06:02 | NUR ---
Quiet night- Did sleep fair during the night, states feels better this morning- nose is not running and no sneezing, VSS, Heparing drip continues at 5cc/hr at this time
[2018-09-13 06:29] LABS: BASO % 0.4 % (0.0-2.0); EOS # 0.1 (0.0-0.7); EOS % 1.7 % (0-4.0); GRAN # 5.4 (1.4-6.5); LYMPH # 1.9 (1.2-3.4); LYMPH % 22.6 % (20.0-51.0); MEAN CELL VOLUME 84 fl (80.0-100.0); MEAN CORPUSCULAR HGB CONC 31 g/dl (33.0-37.0); MEAN PLATELET VOLUME 8.9 fl (7.4-10.4); MONO # 0.7 (0.1-0.6); MONO % 8.2 % (1.7-9.3); PLATELET COUNT 245 K/mm3 (130-400); RED BLOOD COUNT 3.49 M/mm3 (4.10-5.30); REDCELL DISTRIBUTION WIDTH-CV 18.8 % (11.5-14.5)
[2018-09-13 06:34] LABS: HEMATOCRIT 29.3 % (37.0-47.0); MEAN CORPUSCULAR HEMOGLOBIN 26 pg (27.0-31.0)
--- NOTE | 2018-09-13 06:47 | NUR ---
Report received from GAIL Mackay to resume care. No pain or needs reported at this time. The call light is place. HepXa 0615-0.35-No change and recheck HepXa in 6 hours at 1215.
[2018-09-13 06:49] LABS: CALCIUM 8.3 mg/dL (8.4-10.2); CREATININE, serum 1.08 (0.52-1.25); POTASSIUM 3.8 mmol/L (3.4-5.0)
[2018-09-13 07:25] VITALS: BP 185/65; PULSE 62; TEMP 98.6
[2018-09-13] MEDS ORDERED: IMDUR 30MG30 MG/TAB PO (09:36)
[2018-09-13] MEDS ORDERED: ZESTRIL 10MG10 MG PO (09:37)
[2018-09-13] MEDS ORDERED: COREG 6.256.25 MG/TA PO (09:37)
--- NOTE | 2018-09-13 10:19 | NUR ---
CLARITA attended clinical rounds. The patient is wanting to return home with medical management instead of transferring to [facility]. CLARITA then followed up with the patient and patient's to review discharge plan and to discuss home health services. The patient reports that she is not interested in home health at this time. The patient is to discharge back home today, 09/13. CLARITA presented and explained the IM form to the patient and patient's . The patient's verbalized understanding, signed, and he was provided a copy. No additional needs at this time.
--- NOTE | 2018-09-13 11:35 | NUR ---
First visit from the doorkeeper. No needs right now.
== END 2018-09-13 15:37 | disposition home or self-care (01) | DRG 281 ==
LOC: COL.ER 10:44 → MEDICAL 14:31 → ICU 09-11 22:45 → MEDICAL 09-12 16:50
PROVIDERS: Family Medicine; Nurse Practitioner Family; Physician Assistant; ADMIT Internal Medicine
DX: I21.4 Non-ST elevation (NSTEMI) myocardial infarction (principal); E23.0 Hypopituitarism; I47.1 Supraventricular tachycardia; K21.9 Gastro-esophageal reflux disease without esophagitis; E03.9 Hypothyroidism, unspecified; I12.9 Hypertensive chronic kidney disease with stage 1 through stage 4 chronic kidney disease, or unspecified chronic kidney disease; D64.9 Anemia, unspecified; I08.3 Combined rheumatic disorders of mitral, aortic and tricuspid valves; E78.5 Hyperlipidemia, unspecified; N18.9 Chronic kidney disease, unspecified; D72.829 Elevated white blood cell count, unspecified; I25.10 Atherosclerotic heart disease of native coronary artery without angina pectoris; I25.2 Old myocardial infarction; Z90.710 Acquired absence of both cervix and uterus; Z95.5 Presence of coronary angioplasty implant and graft; Z90.89 Acquired absence of other organs; Z79.82 Long term (current) use of aspirin; Z88.2 Allergy status to sulfonamides; Z91.041 Radiographic dye allergy status; Z87.891 Personal history of nicotine dependence
CPT/HCPCS: 99223-AI; 99233-AI; 99239; J0360; J1644; J2405; J7030

== ENCOUNTER 2018-10-05 14:04 | Emergency (ER) | payer MEDICARE, BC ==
[2009-03-30 04:26] VITALS: BP 188/89
[~2018-10-05] VITALS: Ht 157.5 cm; Wt 55.5 kg
[~2018-10-05 14:04] MED LIST changes: +IMDUR 30MG30 MG/TAB PO; +MAXITROL OPHTH3.5 GM OP; +PREDFORTE10ML OU; +ZESTRIL 10MG10 MG PO
[2018-10-05 14:07] VITALS: TEMP 98.1
[2018-10-05 15:04] LABS: BASO % 0.4 % (0.0-2.0); EOS # 0.1 (0.0-0.7); EOS % 0.7 % (0-4.0); GRAN # 8.7 (1.4-6.5); GRAN % 81.1 % (42.2-75.2); HEMATOCRIT 34.7 % (37.0-47.0); HEMOGLOBIN 10.8 g/dl (12.5-16.0); LYMPH # 1.4 (1.2-3.4); LYMPH % 12.8 % (20.0-51.0); MEAN CELL VOLUME 85 fl (80.0-100.0); MEAN CORPUSCULAR HEMOGLOBIN 27 pg (27.0-31.0); MEAN CORPUSCULAR HGB CONC 31 g/dl (33.0-37.0); MONO # 0.4 (0.1-0.6); MONO % 3.9 % (1.7-9.3); PLATELET COUNT 250 K/mm3 (130-400); RED BLOOD COUNT 4.07 M/mm3 (4.10-5.30)
[2018-10-05 15:07] LABS: INR 0.9 (0.8-3.0); PROTHROMBIN TIME 10.8 SECONDS (9.7-12.8)
[2018-10-05 15:10] LABS: PARTIAL THROMBOPLASTIN TIME 27.9 SECONDS (26.0-37.0)
[2018-10-05 15:17] LABS: ALANINE AMINOTRANSFERASE 25 U/L (9-52); ALBUMIN 3.3 gm/dL (3.5-5.0); ALKALINE PHOSPHATASE 44 U/L (50-136); ANION GAP 7 mmol/L (7-16); AST,SGOT 28 U/L (15-37); BILIRUBIN,TOTAL 0.3 mg/dL (0.0-1.0); BLOOD UREA NITROGEN 20 mg/dL (7-17); CALCIUM 8.9 mg/dL (8.4-10.2); CARBON DIOXIDE 29 mmol/L (22-30); CHLORIDE 101 mmol/L (98-107); CREATININE, serum 1.21 (0.52-1.25); GLUCOSE 96 mg/dL (74-106); LIPASE 317 U/L (23-300); POTASSIUM 4.6 mmol/L (3.4-5.0); SODIUM 137 mmol/L (137-145)
[2018-10-05 15:25] LABS: ERYTHROCYTE SEDIMENTATION RATE 1 mm/hr (0-30)
[2018-10-05 15:26] LABS: C-REACTIVE PROTEIN < 0.5 mg/dL (0.0-0.9)
[2018-10-05 15:29] LABS: TROPONIN-I < 0.012 ng/mL (0.000-0.035)
[2018-10-05 15:38] LABS: COLLECTION METHOD CLEAN CATCH
[2018-10-05 16:02] LABS: MUCOUS Present /lpf; PH 7 (5-8); SQUAMOUS EPITHELIAL None Seen /hpf; URINE APPEARANCE Clear; URINE BACTERIA None Seen /hpf; URINE BILIRUBIN Negative (NEGATIVE); URINE BLOOD Negative (NEGATIVE); URINE COLOR Straw; URINE GLUCOSE Negative (NEGATIVE); URINE KETONE Negative (NEGATIVE); URINE LEUKOCYTE ESTERASE Negative (NEGATIVE); URINE NITRATE Negative (NEGATIVE); URINE PROTEIN(semi-quant) Negative (NEGATIVE); URINE RBC None Seen /hpf; URINE UROBILINOGEN Negative (NEGATIVE)
[2018-10-05 17:41] VITALS: BP 178/85; PULSE 60
== END 2018-10-05 17:45 | disposition home or self-care (01) ==
LOC: COL.ER 14:04
PROVIDERS: Emergency Medicine
DX: R53.1 Weakness (principal); E78.00 Pure hypercholesterolemia, unspecified; I12.9 Hypertensive chronic kidney disease with stage 1 through stage 4 chronic kidney disease, or unspecified chronic kidney disease; N18.9 Chronic kidney disease, unspecified; Z79.02 Long term (current) use of antithrombotics/antiplatelets; Z79.82 Long term (current) use of aspirin; Z95.5 Presence of coronary angioplasty implant and graft
CPT/HCPCS: J7030

== ENCOUNTER 2018-10-19 22:39 | Emergency (ER) | payer MEDICARE, BC ==
[2009-03-30 04:26] VITALS: BP 188/89
[~2018-10-19] VITALS: Ht 157.5 cm; Wt 55.5 kg
[2018-10-19 22:51] VITALS: TEMP 98.3
[2018-10-19 23:42] LABS: MEAN CELL VOLUME 85 fl (80.0-100.0); MEAN CORPUSCULAR HGB CONC 32 g/dl (33.0-37.0); MEAN PLATELET VOLUME 8.6 fl (7.4-10.4); PLATELET COUNT 309 K/mm3 (130-400); RED BLOOD COUNT 3.26 M/mm3 (4.10-5.30); REDCELL DISTRIBUTION WIDTH-CV 18.3 % (11.5-14.5)
[2018-10-19 23:45] LABS: HEMATOCRIT 27.8 % (37.0-47.0); HEMOGLOBIN 8.9 g/dl (12.5-16.0); MEAN CORPUSCULAR HEMOGLOBIN 27 pg (27.0-31.0)
[2018-10-19 23:54] LABS: ALBUMIN 3.4 gm/dL (3.5-5.0); BILIRUBIN,TOTAL 0.9 mg/dL (0.0-1.0); CALCIUM 8.8 mg/dL (8.4-10.2); CREATININE, serum 1.13 (0.52-1.25); POTASSIUM 4.2 mmol/L (3.4-5.0)
[2018-10-19 23:56] LABS: ANISOCYTOSIS 1+; BAND 3 % (0-10); EOSINOPHIL 1 % (0-4); LYMPHOCYTE 16 % (20.0-51.0); METAMYELOCYTE 3 % (0-0); NEUTROPHILS 74 % (42.0-75.2); PLATELET ESTIMATE NORMAL (NORMAL)
[2018-10-20 00:39] LABS: COLLECTION METHOD CLEAN CATCH
[2018-10-20 00:50] LABS: PH 7 (5-8); SQUAMOUS EPITHELIAL None Seen /hpf; URINE APPEARANCE Cloudy; URINE BACTERIA Rare /hpf; URINE BILIRUBIN Negative (NEGATIVE); URINE BLOOD 1+ (NEGATIVE); URINE COLOR Yellow; URINE GLUCOSE Negative (NEGATIVE); URINE KETONE Negative (NEGATIVE); URINE LEUKOCYTE ESTERASE 3+ (NEGATIVE); URINE NITRATE Positive (NEGATIVE); URINE PROTEIN(semi-quant) Negative (NEGATIVE); URINE UROBILINOGEN Negative (NEGATIVE)
[2018-10-20] MEDS ORDERED: OMNICEF 300MG300 MG PO (01:24)
[2018-10-20 03:34] VITALS: BP 147/87; PULSE 81
== END 2018-10-20 03:34 | disposition home or self-care (01) ==
LOC: COL.ER 22:39
PROVIDERS: Emergency Medicine
DX: N39.0 Urinary tract infection, site not specified (principal); M79.605 Pain in left leg; I10 Essential (primary) hypertension; E78.5 Hyperlipidemia, unspecified; K21.9 Gastro-esophageal reflux disease without esophagitis; I25.10 Atherosclerotic heart disease of native coronary artery without angina pectoris; Z87.891 Personal history of nicotine dependence; Z98.890 Other specified postprocedural states; Z79.82 Long term (current) use of aspirin; Z79.02 Long term (current) use of antithrombotics/antiplatelets
CPT/HCPCS: A4216; J0696; J1200; J2930; Q9967

== ENCOUNTER 2018-12-09 18:52 | Emergency (ER) | payer MEDICARE, BC ==
[2009-03-30 04:26] VITALS: BP 188/89
[~2018-12-09] VITALS: Ht 157.5 cm; Wt 54.5 kg
[~2018-12-09 18:52] MED LIST changes: +OMNICEF 300MG300 MG PO
[2018-12-09 19:05] VITALS: TEMP 98.3
[2018-12-09 20:40] VITALS: BP 174/81; PULSE 72
== END 2018-12-09 20:40 | disposition home or self-care (01) ==
LOC: COL.ER 18:52
DX: S61.412A Laceration without foreign body of left hand, initial encounter (principal); I25.10 Atherosclerotic heart disease of native coronary artery without angina pectoris; Z79.82 Long term (current) use of aspirin; Z79.02 Long term (current) use of antithrombotics/antiplatelets; Z23 Encounter for immunization; W18.39XA Other fall on same level, initial encounter

== ENCOUNTER 2018-12-17 09:15 | Outpatient (RCR) | payer MEDICARE, BC ==
[2019-01-05] MEDS ORDERED: COZAAR 25MG25 MG/TAB PO (01:32)
[2019-01-05] MEDS ORDERED: TYLENOL PM EXTR1 TA1 PO (01:33)
[2019-01-05] MEDS ORDERED: CALCIUM 600MG+D1 TAB PO (01:35)
[2019-01-05] MEDS ORDERED: XALATAN EYE DROPS OU (01:36)
[2019-01-05] MEDS ORDERED: COREG 6.256.25 MG/TA PO (01:47)
[2019-01-05] MEDS ORDERED: VITAMIN D31000 I1 PO (01:50)
[2019-01-05] MEDS ORDERED: AK POLY BAC OD (02:07)
[2019-01-05] MEDS ORDERED: SYNTHROID0.05 MG/TA PO (12:33)
== END 2019-01-04 17:28 | disposition home or self-care (01) ==
LOC: WSOT 09:15
DX: M20.022 Boutonniere deformity of left finger(s) (principal)

== ENCOUNTER 2019-01-04 19:46 | Inpatient (IN) | payer MEDICARE, BC ==
[~2019-01-04] VITALS: Ht 157.5 cm; Wt 61.0 kg
[2019-01-04 20:31] LABS: BASO % 0.4 % (0.0-2.0); EOS # 0.1 (0.0-0.7); GRAN # 7.6 (1.4-6.5); GRAN % 78.2 % (42.2-75.2); HEMOGLOBIN 10.3 g/dl (12.5-16.0); LYMPH # 1.2 (1.2-3.4); LYMPH % 12.2 % (20.0-51.0); MEAN CELL VOLUME 86 fl (80.0-100.0); MEAN CORPUSCULAR HEMOGLOBIN 26 pg (27.0-31.0); MEAN CORPUSCULAR HGB CONC 31 g/dl (33.0-37.0); MEAN PLATELET VOLUME 9.1 fl (7.4-10.4); MONO # 0.7 (0.1-0.6); MONO % 7.5 % (1.7-9.3); PLATELET COUNT 271 K/mm3 (130-400); RED BLOOD COUNT 3.92 M/mm3 (4.10-5.30); REDCELL DISTRIBUTION WIDTH-CV 15.4 % (11.5-14.5)
[2019-01-04 20:32] LABS: HEMATOCRIT 33.7 % (37.0-47.0); INR 0.9 (0.8-3.0); PROTHROMBIN TIME 10.7 SECONDS (9.7-12.8)
[2019-01-04 20:40] LABS: ALANINE AMINOTRANSFERASE 16 U/L (9-52); ALBUMIN 3.7 gm/dL (3.5-5.0); ALKALINE PHOSPHATASE 42 U/L (50-136); ANION GAP 7 mmol/L (7-16); AST,SGOT 31 U/L (15-37); BILIRUBIN,TOTAL 0.3 mg/dL (0.0-1.0); BLOOD UREA NITROGEN 21 mg/dL (7-17); C-REACTIVE PROTEIN < 0.5 mg/dL (0.0-0.9); CARBON DIOXIDE 29 mmol/L (22-30); CHLORIDE 103 mmol/L (98-107); CREATININE, serum 1.23 (0.52-1.25); GLUCOSE 110 mg/dL (74-106); POTASSIUM 4.2 mmol/L (3.4-5.0); SODIUM 139 mmol/L (137-145); TOTAL PROTEIN 6.3 gm/dL (6.4-8.2)
[2019-01-04 20:49] LABS: TROPONIN-I 0.016 ng/mL (0.000-0.035)
[2019-01-04 20:50] LABS: ERYTHROCYTE SEDIMENTATION RATE 2 mm/hr (0-30)
[2019-01-04 21:07] LABS: TSH w REFLEX 0.369 uIU/mL (0.465-4.680)
[2019-01-04 22:21] LABS: COLLECTION METHOD CLEAN CATCH
[2019-01-04 22:27] LABS: PH 7 (5-8); SQUAMOUS EPITHELIAL None Seen /hpf; URINE APPEARANCE Clear; URINE BACTERIA None Seen /hpf; URINE BILIRUBIN Negative (NEGATIVE); URINE BLOOD Negative (NEGATIVE); URINE COLOR Straw; URINE GLUCOSE Negative (NEGATIVE); URINE KETONE Negative (NEGATIVE); URINE LEUKOCYTE ESTERASE Negative (NEGATIVE); URINE NITRATE Negative (NEGATIVE); URINE PROTEIN(semi-quant) Negative (NEGATIVE); URINE RBC 0-2 /hpf; URINE UROBILINOGEN Negative (NEGATIVE)
[2019-01-05 01:19] VITALS: BP 201/87; PULSE 73; TEMP 98.4
[2019-01-05] MEDS ORDERED: COZAAR 25MG25 MG/TAB PO (01:32)
[2019-01-05] MEDS ORDERED: TYLENOL PM EXTR1 TA1 PO (01:33)
[2019-01-05] MEDS ORDERED: CALCIUM 600MG+D1 TAB PO (01:35)
[2019-01-05] MEDS ORDERED: XALATAN EYE DROPS OU (01:36)
[2019-01-05] MEDS ORDERED: COREG 6.256.25 MG/TA PO (01:47)
[2019-01-05] MEDS ORDERED: VITAMIN D31000 I1 PO (01:50)
[2019-01-05] MEDS ORDERED: AK POLY BAC OD (02:07)
[2019-01-05 03:46] VITALS: BP 180/63; PULSE 70; TEMP 98.5
--- NOTE | 2019-01-05 07:49 | NUR ---
REPORT RECEIVED FROM GAIL JOHNSTON. PT SLEEPING SOUNDLY IN BED. CALL [facility] IN REACH.
--- NOTE | 2019-01-05 09:09 | NUR ---
Pt awaken and talked to Dr. Marina. She's going to have MRA complete this AM. She's alert and oriented and denied pain. Pt's in rm. Call light in reach.
--- NOTE | 2019-01-05 09:37 | NUR ---
Pt went down to MRA at this time.
--- NOTE | 2019-01-05 11:14 | NUR ---
PT'S BACK FROM MRA AND RESTING IN BED COMFORTABLY. CALL LIGHT IN REACH. PT'S IN RM.
--- NOTE | 2019-01-05 11:48 | NUR ---
Plan: To return home with Cedrick . Assess: Patient reports that they reside locally. Patient denies the use of any DME for 02 or mobility. Patient denies the need for Home health care. Patient reports PCP is Dr. Vlad Melendez. Patient reports she obtains her RX from [facility] [address]. Patient reports she is to see Dr. Duke on 01/07/19. Patient indicated she is having dizziness unlike any time previous. Action: SW offered services in home, declined. Sw educated on community supports and services. will transport home.DPOA is spouse. Nothing follows
[2019-01-05] MEDS ORDERED: SYNTHROID0.05 MG/TA PO (12:33)
[2019-01-05 13:00] VITALS: BP 124/51; PULSE 81; TEMP 97.4
--- NOTE | 2019-01-05 13:33 | NUR ---
PT AND PT'S WENT OVER PT'S MED LIST TO CONFIRM HER HOME MEDS. PT ALERT AND ORIENTED. DENIED PAIN. NO CONCERN. CALL LIGHT IN REACH.
[2019-01-05 17:00] VITALS: BP 137/43; PULSE 66; TEMP 97.9
--- NOTE | 2019-01-05 18:05 | NUR ---
PT FINISHING UP DINNER IN BED AND RESTING WITH NO CONCERN. HEART DIET INFO PRINT OUT PROVIDED TO PT. CALL LIGHT IN REACH.
--- NOTE | 2019-01-05 18:45 | NUR ---
REPORT GIVEN TO GAIL HERMAN. PT RESTING IN BED COMFORTABLY. NO CONCERN. CALL LIGHT IN REACH.
--- NOTE | 2019-01-05 19:24 | NUR ---
Pt resting in bed. at bedside. No distress noted. Pt denies pain. No neurological deficits noted. Respirations even and unlabored. Lungs clear to auscultation. Abdomen soft, nontender. BS+. No edema. IVF infusing to L FA IV. Pt denies needs. Will continue to monitor.
--- NOTE | 2019-01-05 21:30 | NUR ---
Pt was c/o some indigestion after dinner. She requested TUMS. Orders received from Palmira Navarrete APRN.
[2019-01-05 21:38] VITALS: BP 174/71; PULSE 73; TEMP 97.7
[2019-01-06 00:31] VITALS: BP 172/72; PULSE 76; TEMP 98
--- NOTE | 2019-01-06 01:23 | NUR ---
Pts SBP has been in the 170s tonight. Pts PM dose of Coreg was held by day shift RN. Pt has PRN Labetolol if BP continues to rise. will continue to monitor.
[2019-01-06 03:40] VITALS: BP 170/61; PULSE 66; TEMP 98
[2019-01-06 05:00] VITALS: BP 172/72; PULSE 70
--- NOTE | 2019-01-06 05:00 | NUR ---
Pt stated she woke up and "felt strange". No acute distress noted. Pt denies pain or SOB. VSS. Will continue to monitor.
[2019-01-06 07:04] LABS: CHOLESTEROL 120 mg/dL (120-200); HDL CHOLESTEROL 58 mg/dL; LDL CHOLESTEROL 51 mg/dL; TRIGLYCERIDE 55 mg/dL
[2019-01-06 07:05] LABS: C-REACTIVE PROTEIN < 0.5 mg/dL (0.0-0.9)
[2019-01-06 08:08] VITALS: BP 190/97; PULSE 71; TEMP 98
--- NOTE | 2019-01-06 08:13 | NUR ---
PATIENT ASSESSMENT COMPLETED. COMPLAINS OF A HEADACHE. WILL PROVIDE BLOOD PRESURE MEDICATION AT THIS TIME.
[2019-01-06 09:22] LABS: BASO % 0.1 % (0.0-2.0); EOS # 0.1 (0.0-0.7); EOS % 0.4 % (0-4.0); GRAN # 10.3 (1.4-6.5); GRAN % 76.3 % (42.2-75.2); LYMPH # 2.1 (1.2-3.4); LYMPH % 15.1 % (20.0-51.0); MEAN CELL VOLUME 86 fl (80.0-100.0); MEAN CORPUSCULAR HGB CONC 31 g/dl (33.0-37.0); MEAN PLATELET VOLUME 9.5 fl (7.4-10.4); MONO % 7.4 % (1.7-9.3); PLATELET COUNT 289 K/mm3 (130-400); RED BLOOD COUNT 3.42 M/mm3 (4.10-5.30); REDCELL DISTRIBUTION WIDTH-CV 15.7 % (11.5-14.5)
[2019-01-06 09:23] LABS: HEMATOCRIT 29.4 % (37.0-47.0); MEAN CORPUSCULAR HEMOGLOBIN 26 pg (27.0-31.0)
[2019-01-06 09:30] LABS: CALCIUM 8.5 mg/dL (8.4-10.2); CREATININE, serum 0.97 (0.52-1.25); POTASSIUM 3.5 mmol/L (3.4-5.0)
[2019-01-06 10:53] VITALS: BP 169/63; PULSE 64; TEMP 97.6
[2019-01-06] MEDS ORDERED: COZAAR 50MG50 MG/TAB PO (14:10)
[2019-01-06] MEDS ORDERED: REQUIP0.25 MG PO (14:13)
[2019-01-06] MEDS ORDERED: REQUIP 1MG T1 MG/TAB PO (14:13)
--- NOTE | 2019-01-06 15:30 | NUR ---
DISCHARGE INFORMATION REVIEWED WITH PATIENT AND . THEY DENY OTHER QUESTIONS AT THIS TIME. [facility] CLOSES AT 1800 TODAY, THEY WILL GO THERE RIGHT AWAY.
[2019-01-06 17:07] LABS: FOLATE (FOLIC ACID) >20.0 ng/mL (7.0-31.4)
== END 2019-01-06 15:30 | disposition home or self-care (01) | DRG 304 ==
LOC: COL.ER 19:46 → MEDICAL 22:21 → COL.ER 22:21 → MEDICAL 01-06 03:00
PROVIDERS: Emergency Medicine; Nurse Practitioner Family; Psychiatry & Neurology Neurology; ADMIT Hospitalist
DX: I16.0 Hypertensive urgency (principal); I63.9 Cerebral infarction, unspecified; E23.0 Hypopituitarism; E23.6 Other disorders of pituitary gland; G25.81 Restless legs syndrome; E78.5 Hyperlipidemia, unspecified; I25.10 Atherosclerotic heart disease of native coronary artery without angina pectoris; I25.2 Old myocardial infarction; I08.3 Combined rheumatic disorders of mitral, aortic and tricuspid valves; N18.9 Chronic kidney disease, unspecified; I65.22 Occlusion and stenosis of left carotid artery; I13.10 Hypertensive heart and chronic kidney disease without heart failure, with stage 1 through stage 4 chronic kidney disease, or unspecified chronic kidney disease; R40.2143 Coma scale, eyes open, spontaneous, at hospital admission; R40.2363 Coma scale, best motor response, obeys commands, at hospital admission; R40.2253 Coma scale, best verbal response, oriented, at hospital admission; K21.9 Gastro-esophageal reflux disease without esophagitis; Z95.5 Presence of coronary angioplasty implant and graft
CPT/HCPCS: 99222-AI; 99233-AI; 99239; A9585; J1200; J1644; J2930; J3010; J7030; Q9967

== ENCOUNTER → 2019-01-11 | Outpatient (CLI) | payer MEDICARE, BC ==
[~2019-01-11] MED LIST changes: +AK POLY BAC OD; +CALCIUM 600MG+D1 TAB PO; +COZAAR 25MG25 MG/TAB PO; +COZAAR 50MG50 MG/TAB PO; +REQUIP 1MG T1 MG/TAB PO; +REQUIP0.25 MG PO; +TYLENOL PM EXTR1 TA1 PO; +VITAMIN D31000 I1 PO; +XALATAN EYE DROPS OU
[2019-01-12 03:59] LABS: IRON,SERUM 46 ug/dL (35-150); RETIC # 0.1 M/mm3 (0.02-0.16); RETIC % 2.3 % (0.5-3.52); TOTAL IRON BINDING CAPACITY 334 ug/dL (265-497)
== END ==
LOC: ZCOL.LAB 16:09
PROVIDERS: Family Medicine
DX: D50.9 Iron deficiency anemia, unspecified (principal)

== ENCOUNTER → 2019-03-19 | Outpatient (CLI) | payer MEDICARE, BC ==
[2019-03-19 17:48] LABS: BASO # 0.1 (0.0-0.2); BASO % 0.5 % (0.0-2.0); EOS # 0.2 (0.0-0.7); EOS % 1.4 % (0-4.0); GRAN % 75.9 % (42.2-75.2); HEMATOCRIT 37.4 % (37.0-47.0); HEMOGLOBIN 11.6 g/dl (12.5-16.0); LYMPH # 1.5 (1.2-3.4); LYMPH % 12.9 % (20.0-51.0); MEAN CELL VOLUME 87 fl (80.0-100.0); MEAN CORPUSCULAR HEMOGLOBIN 27 pg (27.0-31.0); MEAN CORPUSCULAR HGB CONC 31 g/dl (33.0-37.0); MEAN PLATELET VOLUME 9.6 fl (7.4-10.4); MONO % 8.3 % (1.7-9.3); PLATELET COUNT 269 K/mm3 (130-400); REDCELL DISTRIBUTION WIDTH-CV 18.3 % (11.5-14.5); RETIC % 2.3 % (0.5-3.52)
== END ==
LOC: ZCOL.LAB 16:57
PROVIDERS: Family Medicine
DX: D50.9 Iron deficiency anemia, unspecified (principal)

== ENCOUNTER 2019-06-09 09:06 | Inpatient (IN) | payer MEDICARE, BC ==
[~2019-06-09] VITALS: Ht 157.5 cm; Wt 59.6 kg
[2019-06-09 09:52] LABS: BASO % 0.3 % (0.0-2.0); EOS # 0.2 (0.0-0.7); EOS % 1.5 % (0-4.0); GRAN # 7.9 (1.4-6.5); HEMATOCRIT 33.1 % (37.0-47.0); HEMOGLOBIN 10.6 g/dl (12.5-16.0); LYMPH # 2.5 (1.2-3.4); MEAN CELL VOLUME 88 fl (80.0-100.0); MEAN CORPUSCULAR HEMOGLOBIN 28 pg (27.0-31.0); MEAN CORPUSCULAR HGB CONC 32 g/dl (33.0-37.0); MEAN PLATELET VOLUME 9.2 fl (7.4-10.4); MONO # 0.7 (0.1-0.6); MONO % 6.4 % (1.7-9.3); PLATELET COUNT 239 K/mm3 (130-400); RED BLOOD COUNT 3.78 M/mm3 (4.10-5.30); REDCELL DISTRIBUTION WIDTH-CV 14.6 % (11.5-14.5)
[2019-06-09 10:10] LABS: ALBUMIN 3.3 gm/dL (3.5-5.0); BILIRUBIN,TOTAL 0.5 mg/dL (0.0-1.0); CALCIUM 8.2 mg/dL (8.4-10.2); CREATININE, serum 1.09 (0.52-1.25); POTASSIUM 3.8 mmol/L (3.4-5.0); TOTAL PROTEIN 5.8 gm/dL (6.4-8.2)
[2019-06-09 10:34] LABS: TROPONIN-I 0.04 ng/mL (0.000-0.035)
[2019-06-09] MEDS ORDERED: FERRO-TIME325 MG PO (10:43)
[2019-06-09] MEDS ORDERED: PREDFORTE5ML IO (10:44)
[2019-06-09 10:48] LABS: PROTHROMBIN TIME 11.6 SECONDS (9.7-12.8)
[2019-06-09 15:37] VITALS: BP 182/70; PULSE 74; TEMP 98
[2019-06-09] MEDS ORDERED: TYLENOL 500MG500 MG PO (15:39)
[2019-06-09] MEDS ORDERED: OSCAL 500 TAB500 MG PO (15:42)
[2019-06-09] MEDS ORDERED: CALCIUM ANTACI500 MG PO (15:44)
[2019-06-09] MEDS ORDERED: CORTEF 10MG TAB10 MG PO (15:55)
[2019-06-09] MEDS ORDERED: MELATIN 3 MG-11 TAB PO (15:57)
[2019-06-09] MEDS ORDERED: MELATONIN3 M1 PO (15:58)
--- NOTE | 2019-06-09 16:00 | NUR ---
PATIENT IS LAYING IN BED AT THIS TIME WITH NO DISTRESS. IS AT BEDSIDE AND ABLE TO HELP ANSWER QUESTIONS. PATIENT DOES HAVE HER EYES CLOSED AND IS RESTING. SNACKS WERE GIVEN TO THE PATIENT UPON ADMISSION. NO OTHER NEEDS AT THIS TIME. ROOM ORIENTATION PROVIDED.
[2019-06-09 17:02] VITALS: BP 159/86
[2019-06-09 17:03] VITALS: PULSE 69
[2019-06-09 18:23] VITALS: BP 147/66; PULSE 100; TEMP 97.4
--- NOTE | 2019-06-09 19:13 | NUR ---
PT WAS ADMITTED TO FLOOR THIS AFTERNOON. HAD CHEST PRESSURE AND DISCOMFORT REPORTED. ADMINISTERED NITRO X3, PT WAS THEN HAS SOME NAUSEA AND DRY HEAVING. THIS NURSE CALLED AND RECIEVED AN ORDER FOR SOME ZOFRAN AND ADMINISITERED. THIS NURSE GAVE BEDSIDE SHIFT REPORT TO NIGHT RN, UPON REAASSESSMENT PT WAS FEELING BETTER. ABLE TO REST. NO CONSERNS VOICED AT THIS TIME.
--- NOTE | 2019-06-09 19:41 | NUR ---
PT report received from Lucy RN at bedside. PT spouse at bedside. PT resting in bed with eyes closed but responds to questions. No s/s of distress noted. Call light within reach. Food and beverages on bedside table within reach.
[2019-06-09 20:30] VITALS: BP 160/88; PULSE 64; TEMP 98
--- NOTE | 2019-06-09 22:05 | NUR ---
PT resting in bed with spouse at her side. PT states that she is not feeling well and is having hot/cold flashes. Warm blankets provided and PT states that she does not want them at this time and spouse replies that he will keep them so that when she gets cold he can cover her again. Kavita GURROLA notified of lab results showing respiratory panel positive for HKU1 with no new orders at this time. PT continues to have Nausea and reduced appetite. PT VS assessed by this proposal lead writer and nasal canulla is noted to be off with SpO2 of 86% RA, once O2 per NC was placed on PT her SpO@ increased to 95% on 3LPM 02. PT is noted to have elevated BP which is just below physician notification parameters. When this proposal lead writer completed assessment and returned to nurse's station PT's daughter who was on the phone with PT's spouse during assessment calls this proposal lead writer and expresses concern for her mother. Daughter educated that the FLOORING MECHANIC has been notified of PT's respiratory panel, is working on the unit tonight, and PT will be continued to be monitored by this proposal lead writer and FLOORING MECHANIC. PT daughter states understanding and expreses appreciation for the information provided. Will continue to monitor PT.
[2019-06-09 22:30] VITALS: BP 152/78
[2019-06-10] VITALS (360 sets, daily range): BP systolic 98–154; BP diastolic 58–84; PULSE 58–130; TEMP 97.5–98.9; O2SAT 79–100
--- NOTE | 2019-06-10 00:44 | NUR ---
PT report received from ASPHALT DISTRIBUTOR OPERATOR regarding PT not wearing NC and upon ASPHALT DISTRIBUTOR OPERATOR placing O@ per NC back on PT her SpO2 remained below 90% on 3L. This play writer spoke with RT who states that this play writer may titrate O2 as needed. O2 increased to 4LPM and O2 is noted to increase to 92%. HR noted as 124 per pulse oximeter but within 3 minutes HR is noted to return to 87. Food tray and beverages removed from room D/T PT NPO at midnight. Will continue to monitor.
[2019-06-10 02:29] LABS: BASO % 0.3 % (0.0-2.0); EOS # 0.3 (0.0-0.7); EOS % 2.7 % (0-4.0); GRAN # 8.7 (1.4-6.5); GRAN % 71.5 % (42.2-75.2); HEMOGLOBIN 10.6 g/dl (12.5-16.0); LYMPH % 16.4 % (20.0-51.0); MEAN CELL VOLUME 86 fl (80.0-100.0); MEAN CORPUSCULAR HEMOGLOBIN 28 pg (27.0-31.0); MEAN CORPUSCULAR HGB CONC 33 g/dl (33.0-37.0); MEAN PLATELET VOLUME 8.8 fl (7.4-10.4); MONO % 8.4 % (1.7-9.3); PLATELET COUNT 213 K/mm3 (130-400); RED BLOOD COUNT 3.79 M/mm3 (4.10-5.30); REDCELL DISTRIBUTION WIDTH-CV 14.3 % (11.5-14.5)
[2019-06-10 02:30] LABS: HEMATOCRIT 32.5 % (37.0-47.0)
[2019-06-10 02:41] LABS: CALCIUM 7.9 mg/dL (8.4-10.2); CHOLESTEROL RISK RATIO 2.2; CREATININE, serum 0.91 (0.52-1.25); POTASSIUM 3.8 mmol/L (3.4-5.0)
[2019-06-10 03:16] LABS: TROPONIN-I 0.095 ng/mL (0.000-0.035)
--- NOTE | 2019-06-10 03:33 | NUR ---
PT resting with eyes closed and spouse sleeping at bedside. PT awakes while this writer producer is preparing IV tubing and fluids. Education provided on new order for 1 gram Mg+ IV over 1 hour and 10meq KCL+ over 1 hour x2, that these medications are ordered to help correct a metabolyte imbalance and that this may help her feel a little better but that it will not address her respiratory virus. PT states understanding. Will continue to monitor.
--- NOTE | 2019-06-10 07:00 | NUR ---
Bedside shift report received from GAIL tomlin. Pt has blood around mouth from tooth removal overnight. at bedside. Pt rolling from side ot side often, states she "doesn't feel well", will continue to monitor.
--- NOTE | 2019-06-10 09:00 | NUR ---
Assessment charted. Pt resting in bed, PRN nausea meds given per request and tried to encourage pt to eat and drink to help raise blood sugars as she is low this am. Resting in bed, truning from side to side, at bedside encouraging to eat and drink. Pt states she can't tolerate it right now, refusing am lab draws. 02 at 4L NC. Oral care provided and front upper gum is red and bleeding intermittently. Will continue to monitor.
--- NOTE | 2019-06-10 14:13 | NUR ---
Patient not wearing O2 when entered room O2 sat low, reapplied nasel cannula and O2 saturation went up into normal ranges
--- NOTE | 2019-06-10 15:47 | NUR ---
Window Draper met with patient's Cedrick (ph#[phone]) and patient's daughter Emmy (ph#[phone]) to discuss discharge planning. Patient was asleep during intake interview and did not wake at any time. Patient's daughter, Gita (ph#[phone]) will be in later. Patient lives in [place] with Cedrick and sees Dr. Catalan for primary care. Patient obtains medications from [facility] with no difficulties. Patient does not use any DME but Emmy reports this may be a need upon discharge. Patient has Advance Directives located in EMR. Following intake, SW was notified that Palliative Consult was put in and then that patient to transfer to ICU. CLARITA notified ICU Christa OTTO.
--- NOTE | 2019-06-10 16:03 | NUR ---
Palliative care nurse accompanied Dr Thomas and Ena GURROLA while they discussed cardiac concerns noted on ECHO and recommendation to go to ICU for initiation of amniodarone to manage Afib and keep close eye on known blood pressures variations. Daughter and both report that pt would want anything done that would help her get better. She remains a full code at this time also for that reason. Family is feeling that her virus is causing all of this problems but it was reinforced that there is an ongoing cardiac problem that could have worsened with the virus but that it will not be expected to go away with the virus. Dr Marshall will be in to further talk with family in the morning. Family did report that pt had a holter moniotr on just last week and are hopeful that this will clarify "what came first". Pt is extremely tired and doesn't like to be bothered by nursing. "Just leave me alone". We will see how transfer to ICU with ongoing monitoring goes.
--- NOTE | 2019-06-10 16:20 | NUR ---
Arrived to ICU 6 via bed from medical floor. Opens eyes when name called and answers questions appropriately. Noted to have dried blood on lips, on right side of face, bottom of left foot and on left FA. Gown changed and cares provided, except oral care as patient won't allow at this time.
--- NOTE | 2019-06-10 16:43 | NUR ---
Pt transported down to ICU room 6 via bed with staff. Pt resting on side, continues to be lethargic and wants to rest without disturbances. Family in waiting room until settled in ICU bed. IV bad on transfer, new 20G started to RFA. Report given to GAIL Elder who will resume care.
--- NOTE | 2019-06-10 18:06 | NUR ---
Patient had full linen change at 0900 and a change of gown at 1400 due to bloody discharge from mouth. Bleeding from loss of tooth continued throughout shift, patient lost multiple clotts from mouth.
--- NOTE | 2019-06-10 19:30 | NUR ---
Bedside report given to Clay REYNOLDS. Amiodarone infusion verified. Family at bedside and questions answered. 1835-Did allow this RN to provide some oral care and wash hands and face. Transfered to [facility] commode and back to bed with 1:1 assist. Movements very implusive and needs reminded several time to slow down and be careful with transfers. Bed alarms continue to be on and family aware.
--- NOTE | 2019-06-10 19:42 | NUR ---
Patient resting in bed, patient assessment completed and charted at this time, please see documentation for details. Patient has call light within reach, bed alarm in place due to patient impulsity. Will continue to monitor.
[2019-06-11] VITALS (610 sets, daily range): BP systolic 144–177; BP diastolic 62–88; PULSE 56–88; TEMP 98.3–98.8; O2SAT 78–100
[2019-06-11 06:29] LABS: BASO % 0.3 % (0.0-2.0); EOS # 0.3 (0.0-0.7); EOS % 2.9 % (0-4.0); GRAN # 5.8 (1.4-6.5); GRAN % 66.7 % (42.2-75.2); HEMOGLOBIN 10.7 g/dl (12.5-16.0); LYMPH # 1.9 (1.2-3.4); LYMPH % 21.7 % (20.0-51.0); MEAN CELL VOLUME 85 fl (80.0-100.0); MEAN CORPUSCULAR HEMOGLOBIN 28 pg (27.0-31.0); MEAN CORPUSCULAR HGB CONC 33 g/dl (33.0-37.0); MEAN PLATELET VOLUME 9.1 fl (7.4-10.4); MONO # 0.7 (0.1-0.6); MONO % 7.6 % (1.7-9.3); PLATELET COUNT 229 K/mm3 (130-400); RED BLOOD COUNT 3.78 M/mm3 (4.10-5.30); REDCELL DISTRIBUTION WIDTH-CV 14.2 % (11.5-14.5)
[2019-06-11 06:53] LABS: ALBUMIN 3.2 gm/dL (3.5-5.0); BILIRUBIN,TOTAL 0.9 mg/dL (0.0-1.0); CALCIUM 8.1 mg/dL (8.4-10.2); CREATININE, serum 1.08 (0.52-1.25); MAGNESIUM 1.9 mg/dL (1.6-2.3); POTASSIUM 3.9 mmol/L (3.4-5.0); TOTAL PROTEIN 5.9 gm/dL (6.4-8.2)
--- NOTE | 2019-06-11 09:35 | NUR ---
Following up with pt and family today in ICU. was able to go home and rest last night and Vanessa reports sleepingg better last night also. Oldest daughter is also in the room and they are all waiting to talk with Dr Marshall. I introduced myself to daughter and advised that I had been there when Dr Thomas has talked with and daughter yesterday and will try to follow up after they talk with Dr Marshall today.
--- NOTE | 2019-06-11 15:05 | NUR ---
Pt's IV site has been lost, AIV services looked for another peripheral site and could not find one. PICC line was discussed with pt and as well as two daughters. Pt is getting tired of all of the interventions while knowing that her heart is very compromised as Dr Marshall explained to her and daughter this morning. At this point she states I don't want anything else done. When asked if her heart were to stop or she were to start breathing if she wanted to be resuscitated, she replied "no, just let me go peacefully". This information was relayed to Shani ELIZALDE with Dr Baer and to primary nurse Malathi Alvarez RN. Pt went on to say she doesn't want any more procedures but just to be kept comfortable at this time. This is a very emotional time for the family. We will discuss options after discharge tomorrow.
--- NOTE | 2019-06-11 19:43 | NUR ---
Report given to Tona REYNOLDS and care transfered.
--- NOTE | 2019-06-11 19:45 | NUR ---
Assessment completed at this time. Patient alert and oriented. Denies any pain or other complaints. Multiple scabs noted over body and extensive bruising observed to upper and lower extremities. Patient reports these are from [facility] steroid use. Assisted up to commode to void. Family at bedside. No concerns at this time.
--- NOTE | 2019-06-11 21:30 | NUR ---
Received report from TECHNICAL DATA ANALYSTGAIL Carbone.
--- NOTE | 2019-06-11 21:57 | NUR ---
Brought patient up to medical floor via wheelchair; family with patient. Patient alert and oriented upon arrival. Assisted in to bed; alerted nursing staff that patient was in room.
--- NOTE | 2019-06-11 22:10 | NUR ---
Pt arrived to medical unit room 356 via WC with dtr and .
--- NOTE | 2019-06-11 22:40 | NUR ---
Assessment complete. Has been receiving prn pain meds for c/o back pain and c/o left leg pain with movement that has been ongoing, per pt. Pt able to make needs known. Tele monitor in place, leads checked. Numerous bruising to BUE and BLE. On 2L O2 NC. Denies SOB. Lungs CTAB. On droplet precautions. Dtr will remain with pt throughout the night. Needs met. Call light within reach.
[2019-06-12] VITALS (8 sets, daily range): BP systolic 106–169; BP diastolic 63–92; PULSE 69–95; TEMP 97.6–98.7
--- NOTE | 2019-06-12 01:36 | NUR ---
Pt states she is unable to sleep, PRN Melatonin administered. Assisted pt to BR without issue. Needs met. Call light within reach.
--- NOTE | 2019-06-12 02:30 | NUR ---
Pt c/o chest pressure and requested NTG. NTG x3 given with some relief, states feeling better. Monitored VS and pt, pt reported perspiration, T98.0. (0230) BP 151/92, HR85, 97% 2LNC. (0238) BP 138/82, HR84, 96% (0245) BP 106/63, HR69 Called supervisor telephone answering service and reports no ST changes, but reports change from previous EKG. Notified Dr Thomas and ordered EKG. EKG showed SR LBBB. Pt states feeling better. Will continue to monitor. Dtr at bedside.
--- NOTE | 2019-06-12 04:20 | NUR ---
Pt c/o chest pressure, similar to earlier complaint. BP elevated, 170/74, telephone collector reports no changes. Notified Dr Thomas, orders for labs, Trp and to give hydrocodone pain med. Orders carried out. Will monitor pt. Pt verbalized acceptance of lab draws.
[2019-06-12 06:57] LABS: BASO % 0.2 % (0.0-2.0); EOS # 0.2 (0.0-0.7); EOS % 1.8 % (0-4.0); GRAN # 5.9 (1.4-6.5); GRAN % 72.7 % (42.2-75.2); HEMOGLOBIN 11.1 g/dl (12.5-16.0); LYMPH # 1.4 (1.2-3.4); LYMPH % 17.1 % (20.0-51.0); MEAN CELL VOLUME 85 fl (80.0-100.0); MEAN CORPUSCULAR HEMOGLOBIN 28 pg (27.0-31.0); MEAN CORPUSCULAR HGB CONC 33 g/dl (33.0-37.0); MEAN PLATELET VOLUME 9.4 fl (7.4-10.4); MONO # 0.6 (0.1-0.6); MONO % 6.9 % (1.7-9.3); PLATELET COUNT 237 K/mm3 (130-400); RED BLOOD COUNT 3.96 M/mm3 (4.10-5.30); REDCELL DISTRIBUTION WIDTH-CV 13.8 % (11.5-14.5)
--- NOTE | 2019-06-12 07:09 | NUR ---
Report given to GAIL Monahan.
[2019-06-12 07:11] LABS: HEMATOCRIT 33.5 % (37.0-47.0)
[2019-06-12 07:14] LABS: ALBUMIN 3.5 gm/dL (3.5-5.0); BILIRUBIN,TOTAL 0.7 mg/dL (0.0-1.0); CALCIUM 8.5 mg/dL (8.4-10.2); CREATININE, serum 1.04 (0.52-1.25); TOTAL PROTEIN 6.3 gm/dL (6.4-8.2)
[2019-06-12 07:44] LABS: TROPONIN-I 0.157 ng/mL (0.000-0.035)
--- NOTE | 2019-06-12 12:14 | NUR ---
Initial visit; Patient and her thanked Adjunct Sociology Professor for looking in on her and offering God's blessings.
--- NOTE | 2019-06-12 12:30 | NUR ---
Patient calling out and very anxious. Wants something to help with her nerves and help her sleep. Call to [facility]. New orders recieved
--- NOTE | 2019-06-12 13:37 | NUR ---
Pt requesting tray and provided as soon as tray cart got to floor. She sat up to eat on the side of the bed without difficulty. No family in the room at this time.
--- NOTE | 2019-06-12 14:48 | NUR ---
Pt states she would like to go home. supportive of trying PT/OT services here and looking at having home health services in the home to help her gain some strength and work with their home setting. Pt would like to start with home health initially and knows that can change to hospice services when needed.
--- NOTE | 2019-06-12 20:00 | NUR ---
Receieved report GAIL Monahan. Assessment complete. Alert and oriented. Pt resting in bed with family at bedside. More family members out in lobby. Denies any chest pain/pressure or any discomfort at this time. States shes tired. Offered dinner tray and snacks, pt refused. Pt dtr called family member to bring food from outside for pt, per pt request. Pt son brought apple fritters for pt to eat. Needs attended too. Meds administered, refused sennokot, no c/o of constipation. Standby assist to BR.
[2019-06-13 02:09] VITALS: BP 153/78; PULSE 88; TEMP 98.3
--- NOTE | 2019-06-13 04:00 | NUR ---
Assisted pt to BR. No complaints. Denies any pain or discomfort. Needs attended too. Cindi Dye at bedside. Call light within reach.
[2019-06-13 05:37] VITALS: BP 155/70; PULSE 83; TEMP 98.7
--- NOTE | 2019-06-13 07:17 | NUR ---
Report given to GAIL Herndon.
[2019-06-13 07:25] VITALS: BP 136/68; PULSE 77; TEMP 98.1
--- NOTE | 2019-06-13 08:25 | NUR ---
(Late Entry 06/12/2019) Piano Builder spoke with LUBNA Frederick who advised patient would benefit from Home Health Services if returning home is her plan. SW attempted to meet with patient who was asleep. CLARITA will follow up tomorrow with Medicare.gov list of Home Health Agencies.
[2019-06-13] MEDS ORDERED: NORCO 325 MG-51 TAB PO (10:44)
[2019-06-13] MEDS ORDERED: PACERONE400 MG PO (10:46)
[2019-06-13 11:59] VITALS: BP 142/72; PULSE 95; TEMP 98.4
--- NOTE | 2019-06-13 15:45 | NUR ---
PATIENT DC TO HOME VIA PRIVATE VEHICLE ACCOMPANIED BY @ 0400. lEFT UNIT IN WC ACCOMPANIED BY PCT. PRINTED DC INSTRUCTIONS TO INCLUDE F/U, MEDICATIONS, AND HOSPITAL DIAGNOSIS REVIEWED WITH PATIENT AND . ALL QUESTIONS AND CONCERNS ADDRESSED.
--- NOTE | 2019-06-13 17:55 | NUR ---
Automobile Upholsterer attended clinical rounds with the team and patient to discharge today. Patient states she intends on returning home. Hospitalist discussed 30 day window to explore SNF if returning home is not sucessful. CLARITA provided her contact information to the family. CLARITA met with the patient, patient's , and patient's daughters and provided Medicare.gov list of Home Health agencies. CLARITA had received a phone call from [facility] with [facility] and was advised patient's family had reached out and was interested in their services, specifically palliative home health. CLARITA met with the family again and reviewed definition of palliative home health. Patient and patient's family in agreeance that they would like palliative home health with [facility]. CLARITA faxed referral to [facility] and was advised they could accept referral. CLARITA provided update to patient and patient's . CLARITA also presented and explained IM form to patient and patient's . Both verbalized understanding and provided signature. CLARITA placed form on patient chart and provided copy to patient. CLARITA received a voicemail message from [facility] that advised an evaluation had been scheduled for tomorrow morning at patient's home. No additional needs at this time.
== END 2019-06-13 15:50 | disposition home health service (06) | DRG 280 ==
LOC: COL.ER 09:06 → MEDICAL 12:12 → COL.ER 12:12 → MEDICAL 12:12 → ICU 06-10 16:23 → MEDICAL 06-10 16:23 → ICU 06-11 21:50 → MEDICAL 06-11 21:50
PROVIDERS: Emergency Medicine; Nurse Practitioner Family; ADMIT Hospitalist
DX: I21.4 Non-ST elevation (NSTEMI) myocardial infarction (principal); J96.91 Respiratory failure, unspecified with hypoxia; I50.33 Acute on chronic diastolic (congestive) heart failure; E87.1 Hypo-osmolality and hyponatremia; Z66 Do not resuscitate; I25.10 Atherosclerotic heart disease of native coronary artery without angina pectoris; K21.9 Gastro-esophageal reflux disease without esophagitis; N18.9 Chronic kidney disease, unspecified; D50.9 Iron deficiency anemia, unspecified; I48.91 Unspecified atrial fibrillation; E87.6 Hypokalemia; T38.0X5A Adverse effect of glucocorticoids and synthetic analogues, initial encounter; E83.42 Hypomagnesemia; I11.0 Hypertensive heart disease with heart failure; R94.31 Abnormal electrocardiogram [ECG] [EKG]; I08.3 Combined rheumatic disorders of mitral, aortic and tricuspid valves; B34.2 Coronavirus infection, unspecified; I44.7 Left bundle-branch block, unspecified; F32.9 Major depressive disorder, single episode, unspecified; I27.20 Pulmonary hypertension, unspecified; E16.2 Hypoglycemia, unspecified; E03.9 Hypothyroidism, unspecified; Z95.5 Presence of coronary angioplasty implant and graft; Z90.49 Acquired absence of other specified parts of digestive tract; Z90.710 Acquired absence of both cervix and uterus
CPT/HCPCS: 99233-AI; 99239; G0378; J0282; J0780; J1650; J1940; J2405; J3475; J3480; J7040; J7060

== ENCOUNTER 2019-06-18 11:39 | Outpatient (CLI) | payer MEDICARE, BC ==
[2009-03-30 04:26] VITALS: BP 188/89
[~2019-06-18] VITALS: Ht 157.5 cm; Wt 59.1 kg
[~2019-06-18 11:39] MED LIST changes: +CALCIUM ANTACI500 MG PO; +FERRO-TIME325 MG PO; +MELATIN 3 MG-11 TAB PO; +MELATONIN3 M1 PO; +OSCAL 500 TAB500 MG PO; +PACERONE400 MG PO; +PREDFORTE5ML IO
[2019-06-18 12:30] VITALS: BP 140/85; PULSE 96; TEMP 98
[2019-06-18 13:15] LABS: HEMOGLOBIN 11.3 g/dl (12.5-16.0); MEAN CELL VOLUME 87 fl (80.0-100.0); MEAN CORPUSCULAR HEMOGLOBIN 28 pg (27.0-31.0); MEAN CORPUSCULAR HGB CONC 32 g/dl (33.0-37.0); MEAN PLATELET VOLUME 8.4 fl (7.4-10.4); PLATELET COUNT 389 K/mm3 (130-400); RED BLOOD COUNT 4.05 M/mm3 (4.10-5.30); REDCELL DISTRIBUTION WIDTH-CV 14.8 % (11.5-14.5)
[2019-06-18 13:21] LABS: HEMATOCRIT 35.3 % (37.0-47.0)
[2019-06-18 13:22] LABS: ALBUMIN 3.4 gm/dL (3.5-5.0); BILIRUBIN,TOTAL 0.7 mg/dL (0.0-1.0); CALCIUM 8.6 mg/dL (8.4-10.2); CREATININE, serum 1.36 (0.52-1.25); POTASSIUM 4.4 mmol/L (3.4-5.0)
[2019-06-18 13:24] LABS: LYMPHOCYTE 14 % (20.0-51.0); NEUTROPHILS 82 % (42.0-75.2); SCHISTOCYTES 2+
[2019-06-18 13:25] LABS: OVALOCYTES 1+; PLATELET ESTIMATE NORMAL (NORMAL)
[2019-06-18 14:59] LABS: COLLECTION METHOD CLEAN CATCH
[2019-06-18 15:09] LABS: MUCOUS Present /lpf; PH 5 (5-8); URINE APPEARANCE Hazy; URINE BACTERIA None Seen /hpf; URINE BILIRUBIN Negative (NEGATIVE); URINE BLOOD Negative (NEGATIVE); URINE COLOR Amber; URINE GLUCOSE Negative (NEGATIVE); URINE KETONE Negative (NEGATIVE); URINE LEUKOCYTE ESTERASE Negative (NEGATIVE); URINE NITRATE Negative (NEGATIVE); URINE PROTEIN(semi-quant) Negative (NEGATIVE); URINE UROBILINOGEN Negative (NEGATIVE)
[2019-06-18 16:15] VITALS: BP 171/96; PULSE 89; TEMP 98
[2019-06-18] MEDS ORDERED: PACERONE400 MG PO (16:28)
[2019-06-18] MEDS ORDERED: ASPIRIN E.C. 8181 MG PO (16:31)
[2019-06-18] MEDS ORDERED: TYLENOL 500MG500 MG PO (16:31)
[2019-06-18] MEDS ORDERED: LIPITOR 40MG TA40 MG PO (16:31)
[2019-06-18] MEDS ORDERED: PLAVIX 75MG TAB75 MG PO (16:32)
[2019-06-18 17:21] VITALS: BP 143/69; PULSE 72; TEMP 98.1
== END 2019-06-18 17:37 | disposition home or self-care (01) ==
LOC: EUO 11:39
PROVIDERS: Family Medicine
DX: E86.0 Dehydration (principal); E87.1 Hypo-osmolality and hyponatremia
CPT/HCPCS: J7030; J7040